=== PATIENT | male | born 1955 | race Caucasian/White ===

== ENCOUNTER 2019-01-13 15:14 | Outpatient (CLI) | payer MEDICARE, OTHER ==
--- NOTE | 2019-01-13 15:58 | RAD ---
RIGHT KNEE 3 VIEWS: Date: 01/13/19 HISTORY: Right knee pain. FINDINGS/IMPRESSION: Chondrocalcinosis is present. No fracture, dislocation, or bony destruction is identified. No signifi cant osteophytosis is noted. POS: OFF
== END 2019-01-13 15:15 | disposition home or self-care (01) ==
LOC: SCSRAD 15:14
PROVIDERS: ATTEND Family Medicine
DX: M25.561 Pain in right knee (principal); M11.261 Other chondrocalcinosis, right knee

== ENCOUNTER 2020-02-03 10:43 | Inpatient (IN) | payer MEDICARE, OTHER ==
[2020-02-03] MEDS ORDERED: Senokot S 8.6-50 MG TAB PO PRN (14:03)
[2020-02-03] MEDS ORDERED: Acetaminophen 650 MG Suppository PR PRN (14:03)
[2020-02-03] MEDS ORDERED: Acetaminophen 325 MG TAB PO PRN (14:03)
[2020-02-03] MEDS ORDERED: Ondansetron ODT 4 MG TAB PO PRN (14:03)
[2020-02-03] MEDS ORDERED: Ondansetron PF 4 MG/2 ML Vial IVP PRN (14:03)
[2020-02-03] MEDS ORDERED: Guaifenesin DM 100-10/5 ML UDCUP PO PRN (14:03)
[2020-02-03] MEDS ORDERED: Polyethylene Glycol 3350 17 GM Packet PO SCH (15:00)
[2020-02-03 15:04] LABS: Lactic Acid 4.1 mmol/L (0.5-2.2)
[2020-02-03] MEDS: Sodium Chloride 0.9% 1,000 ML IV SCH (15:57)
--- NOTE | 2020-02-03 16:15 | HP ---
PRIMARY CARE PHYSICIAN: Dr. Valle. CHIEF COMPLAINT: Shortness of breath and chest pain. 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 Eventually, he started following with a doctor in [facility] and started receiving radiation therapy to the recurrent mass on his right posterior shoulder blade area. He has been having some worsening intermittent problems with chest pain and shortness of breath. He did have a pleural effusion on his right side, eventually had to have a PleurX catheter placed. This has not been draining very much over the last few weeks and so was going to be taken out. The patient reports that he has had increased dyspnea on exertion over the last few months, but he got severely worse over the last 24 hours. He had persistent chest pain that did not relieve and persistent shortness of breath, even vague at rest and so he came into the emergency room in [place]. He was found to have an elevated white blood cell count 24,000, low hemoglobin of 7.9, elevated D-dimer and severe lactic acidosis of 4.4. The patient had blood cultures drawn there and was given Zosyn and vancomycin. He had a CT angio of the chest, which showed no pulmonary embolism , but left lung mass is worrisome for malignancy along with multifocal loculated complex right-sided pleural effusion, worrisome for pleural-based metastases and a large necrotic right axillary lymph node measuring 4.7 x 4 cm. The patient was saturating 92% on room air at rest. This then dropped with movement. However, he continued to have tachypnea up to 31 breaths per minute. The patient was noted also to be tachycardic with a pulse in the 110s. He was given 30 mL/kg fluid bolus with improvement in his tachycardia and he is feeling more comfortable, was transferred to our facility. REVIEW OF SYSTEMS: CONSTITUTIONAL: No fevers or chills. EYES: No double vision or blurred vision. ENT: No congestion, drainage, or sore throat. He has had a little bit of decreased coordination in his swallow ever since starting the radiation therapy and his throat feels a little bit tight when he tries to swallow things, but he has been able to eat and drink things. CARDIOVASCULAR: He has left-sided chest pain worse with deep breaths and coughs. No cardiac type chest pain. No palpitations or racing heart that he has noticed. PULMONARY: The patient will have some cough if he moves around a lot out. If he remains clearly at rest, he does not cough at all. He has not noticed any productive cough. No wheezing. He has had shortness of breath, especially dyspnea with exertion. GASTROINTESTINAL: The patient reports significant constipation since started on some potassium supplements by his oncologist that is not resolved with [id number] stool softeners. He had some nausea earlier, better with Zofran. No vomiting. No specific abdominal pain. GENITOURINARY: No dysuria or hematuria. MUSCULOSKELETAL: No muscle aches or joint pains besides his chest wall pain and right posterior scapular area pain. SKIN: The patient had 2 cystic-type lesions on his mid back and then his right posterior shoulder area, but no other rashes noted. NEUROLOGIC: No numbness, tingling, or focal weakness. PAST MEDICAL HISTORY: 1. 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 2. Hypertension. PAST SURGICAL HISTORY: 1. Left femur fracture repair after a fall from a ladder years ago. 2. Multiple surgeries to remove a very large cystic sarcoma lesion from his middle of his upper back. SOCIAL HISTORY: No tobacco or illicit drug use. The patient used to drink about a beer a day until the last 6 months or so. He has not had any alcohol since then. He is retired and lives with his who would be his medical decision maker, her name is Sherice Patton. The patient is a full code. FAMILY HISTORY: Without any significant family medical history. ALLERGIES: NO KNOWN DRUG ALLERGIES. CURRENT MEDICATIONS: 1. Doxazosin unknown dose daily. 2. Unknown dose potassium supplements. PHYSICAL EXAMINATION: VITAL SIGNS: Blood pressure 112/66, pulse 99, respirations 24, temperature 97.8 , and O2 saturation 98% on room air. GENERAL: This is a well-developed, well-nourished white male, in no acute distress as long as he remains still in the bed and does get severely dyspneic with any sort of movement. HEENT: Pupils are equal, round, and reactive to light. Oropharynx clear without lesions, erythema, or exudate. NECK: Supple. No lymphadenopathy. No thyroid nodules or enlargement. No JVD. HEART: Regular rate and rhythm. No murmurs, rubs, or gallops. LUNGS: The patient has some crackling in his right base and in the left mid lung field. Otherwise decent air movement throughout. No increased work of breathing at rest currently, and his tachypnea has improved since being in the emergency room. ABDOMEN: Soft and nontender to palpation. Mildly distended. Normoactive bowel sounds. No hepatosplenomegaly or other masses. EXTREMITIES: No clubbing, cyanosis, or edema. BACK: The patient has a large postsurgical area in his upper midline back with skin flap in place is well healed and then he has a scar lump just lateral to his right shoulder blade. It is hard to palpation and tender. He also has some mass in his right axillary area that is tender to palpation. SKIN: No other rashes or lesions noted. NEUROLOGIC: The patient moves all extremities equally. No facial droop. PSYCHIATRIC: Alert and oriented x3. Normal mood and affect. LABORATORY DATA: CBC with a white blood cell count of 24,000, hemoglobin 7.5, hematocrit 25.4, MCV low at 77, platelet count normal, neutrophils 80%, bands 10 %, and lymphocytes low at 4. Coagulation profile shows a D-dimer of 10. Complete metabolic panel is notable for a sodium of 135, chloride of 97, BUN of 30, creatinine of 0.68, glucose of 125, alkaline phosphatase of 234, and albumin of 2.7, the rest was normal. Troponin was negative x1. Brain natriuretic peptide was elevated to 128. Initial lactic acid was 4.4, recheck after fluids was 3.0 and now 2.8. Rapid COVID test done in the emergency room is negative for COVID-19. The patient reports he has had multiple COVID tests for all of his procedures and treatments from his oncologist and they have all come back negative as well and he has not had any COVID contacts. Chest x-ray, I did review the chest x-ray done in the emergency room along with the radiologist's report, does show opacification of the right hemithorax with pleural and parenchymal changes, also with a _ opacity in the right lung apex and completely evaluated. CTA of the chest as per the HPI. ASSESSMENT: 1. Sepsis with possible pulmonary source of infection. The patient has received antibiotics and blood cultures and IV fluids. He does appear improved. His lactic acid is improving. We will admit the patient to the telemetry unit. We will consult Pulmonology. We will continue his antibiotics for now. 2. Sarcoma metastatic to the lungs. This is likely the underlying source of his issues, though possibly with an overlying infection. The patient has not had any chemotherapy, it should not be immunosuppressed at this time. He will need to follow up with his oncologist once his hospitalization is complete. 3. Microcytic anemia, possibly secondary to his cancer versus chronic gastrointestinal blood loss. We will check iron studies on him. We will start the patient on supplementary iron. We will transfuse if needed to keep him above 7 hemoglobin. 4. Constipation secondary to the patient's outpatient potassium treatments. We will start the patient on daily MiraLAX and will give him Senokot as needed twice a day. 5. Gastrointestinal prophylaxis. The patient on Pepcid twice a day. 6. Hypertension. We will watch his blood pressures closely and see if he needs any sort of medications. CODE STATUS: The patient is a full code. Should he be incapacitated, his would be his medical decision maker, her name is Sherice Patton. Job ID: [id number] MTDD
[2020-02-03] MEDS: Piperacillin/Tazobactam 4.5 GM in Sodium Chloride 0.9% 100 ML IVPB SCH (18:24)
[2020-02-04] MEDS: Piperacillin/Tazobactam 4.5 GM in Sodium Chloride 0.9% 100 ML IVPB SCH ×4 (01:32→17:41)
[2020-02-04 04:49] LABS: Iron 30 ug/dL (65-175); Iron Binding Capacity, Total 173 mcg/dL (261-462)
[2020-02-04 04:53] LABS: Anion Gap 16 mmol/L (10-20); BUN (Urea Nitrogen) 22 mg/dL (8.4-25.7); Calc. Creatinine Clearance 128 mL/min (70-130); Calcium 7.9 mg/dL (7.8-10.44); Carbon Dioxide 21 mmol/L (23-31); Chloride 104 mmol/L (98-107); Estimated GFR-MDRD Greater than 90; Glucose 159 mg/dL (80-115); Iron 27 ug/dL (65-175); Iron Binding Capacity, Total 179 mcg/dL (261-462); Potassium 3.8 mmol/L (3.5-5.1); Sodium 137 mmol/L (136-145)
[2020-02-04 05:06] LABS: Band 36 % (5-11); Eosinophils 5 % (0-10); Hemoglobin 6.7 g/dL (14.0-18.0); Hypochromia SLIGHT = 6-15 cells (100X) (0-5/hpf); Lymphocytes 6 % (21-51); MDiff Complete? YES; Mean Corpuscular HGB CONC 28.9 g/dL (32.0-36.0); Mean Corpuscular Hemoglobin 23.2 pg (27.0-31.0); Mean Corpuscular Volume 80.2 fL (78.0-98.0); Mean Platelet Volume 7.7 fL (7.4-10.4); Metamyelocyte 1 % (0-0); Monocytes 3 % (0-10); Neutrophil 49 % (42-75); Platelet Count 207 thou/uL (130-400); Platelet Morphology Comment Appears Adequate; RBC Distribution Width 16.6 % (11.5-14.5); Red Blood Cell (RBC) Count 2.86 mill/uL (4.70-6.10); White Blood Cell (WBC) Count 16.2 thou/uL (4.8-10.8)
--- NOTE | 2020-02-04 08:23 | PDOC.HOSPP ---
- Subjective Encounter Date: 02/04/20 Encounter Time: 12:00 Subjective: Patient has chest pain and fullness and SOB after eating every meal, slowly improves over a few hours each time. While I was sitting with him go suddenly light headed. Heart racing on exam then returned to normal. Tele called to say he had a self limited run of SVT. - Objective Vital Signs & Weight: Vital Signs (12 hours) Temp Pulse Resp BP Pulse Ox 02/04/20 07:34 98.5 F 103 H 20 117/62 94 L 02/04/20 04:00 97.6 F 65 20 112/67 96 02/04/20 03:00 95 02/03/20 21:00 98.4 F 104 H 16 102/59 L 92 L Weight Weight 181 lb 3.52 oz I&O: 02/03/20 02/04/20 02/05/20 06:59 06:59 06:59 Intake Total 1840 Balance 1840 Result Diagrams: 02/04/20 04:08 02/04/20 04:08 Hospitalist ROS - Review of Systems Constitutional: denies: fever, chills Respiratory: reports: shortness of breath, SOB with excertion. denies: cough Cardiovascular: reports: chest pain. denies: palpitations, orthopnea Gastrointestinal: reports: constipation. denies: nausea, vomiting, abdominal pain Genitourinary: denies: dysuria, hematuria Neurological: reports: weakness - Medication Medications: Active Medications Generic Name Dose Route Start Last Admin Trade Name Freq PRN Reason Stop Dose Admin Guaifenesin/Dextromethorphan 15 ml 02/03/20 14:03 02/04/20 01:29 Robitussin Dm PO 15 ml Q4H PRN Administration Cough Sodium Chloride 1,000 mls @ 75 mls/hr 02/03/20 14:03 02/03/20 15:57 Normal Saline 0.9% IV 1,000 mls .[id number] JATINDER Administration Piperacillin Sod/Tazobactam 100 mls @ 200 mls/hr 02/03/20 18:00 02/04/20 06: 09 Sod 4.5 gm/ Sodium Chloride IVPB 100 mls Q6HR JATINDER Administration - Exam General Appearance: NAD, awake alert ENT: moist mucosa Heart: no murmur, no gallops, no rubs, normal peripheral pulses Heart - other findings: tachycardic, then slowed back down Respiratory: normal chest expansion, no tachypnea Respiratory - other findings: some rhonchi on the right base Gastrointestinal: soft, non-tender, non-distended, normal bowel sounds Psychiatric: normal affect, normal behavior, A&O x 3 Hosp A/P (1) Sepsis Code(s): A41.9 - SEPSIS, UNSPECIFIED ORGANISM Status: Acute (2) Lactic acidosis Code(s): E87.2 - ACIDOSIS Status: Acute (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 Code(s): C78.00 - SECONDARY MALIGNANT NEOPLASM OF UNSPECIFIED LUNG; C49.9 - MALIGNANT NEOPLASM OF CONNECTIVE AND SOFT TISSUE, UNSP Status: Acute (4) Acute respiratory failure with hypoxia Code(s): J96.01 - ACUTE RESPIRATORY FAILURE WITH HYPOXIA Status: Acute (5) Anemia of chronic disease Code(s): D63.8 - ANEMIA IN OTHER CHRONIC DISEASES CLASSIFIED ELSEWHERE Status : Acute (6) Constipation Code(s): K59.00 - CONSTIPATION, UNSPECIFIED Status: Resolved (7) SVT (supraventricular tachycardia) Code(s): I47.1 - SUPRAVENTRICULAR TACHYCARDIA Status: Resolved - Plan Patient with some SOB overnight, put on O2 via nasal cannula. Lactic acid up further. Getting fluids and IV antibiotics- Zosyn and Vancomycin since 02/03/2020. Blood cultures pending. Leukocytosis improved some but with significant bandemia. H/H dropped with fluid resuscitation, will transfuse to keep above 7 and will ask Heme/Onc to see. Dr. Lemos consulted with pulmonology. Palliative care consulted. Patient with poor prognosis. SVT run- consulted Dr. Whitmore and started on low dose metoprolol to prevent further episodes. Likely due to sepsis and lung pathology.
[2020-02-04] MEDS: Enoxaparin Sodium 40 MG/0.4 ML SYRINGE SC SCH (09:15)
[2020-02-04] MEDS: Sodium Chloride 0.9% 1,000 ML IV SCH ×2 (09:18→14:54)
[2020-02-04] MEDS: Polyethylene Glycol 3350 17 GM Packet PO SCH (09:23)
[2020-02-04] MEDS: Vancomycin HCl 1.25 GM in Sodium Chloride 0.9% 250 ML 250 ML IVPB SCH ×2 (09:31→22:51)
--- NOTE | 2020-02-04 10:51 | CON ---
DATE OF CONSULTATION: HISTORY OF PRESENT ILLNESS: Mr. Patton is a 64-year-old male. In 2018, he developed a lesion on his back, that was incised and drained. He says it was extremely painful. He was seen in followup 3 to 4 weeks later and this had grown significantly. He went to a structural analysis engineer who did an excisional biopsy and said 2 markers were missing and it was not a sarcoma. He eventually saw another structural analysis engineer who did a wide excision and left him open to heal for 4 months by secondary closure. At that time, he was not told he had a sarcoma either. Since that time, he has been followed at [facility]. He has had a tunneled pleural catheter placed for pleural effusion. He had a chest tube prior to that. Pleural catheter initially was draining 300 mL and now is draining 15 mL. I was consulted because of an abnormal radiograph. He was seen in the [facility] in [place], then admitted to the hospitalist service. He has a very large lymph node under his arm. He had a recurrence cutaneously on the edge of his wide excision, that has recently been radiated. His main complaint is shortness of breath. PAST MEDICAL HISTORY: Remarkable for: 1. Hypertension. 2. Femur fracture with a fall from a ladder. SOCIAL HISTORY: He is a nonsmoker and nondrinker. FAMILY HISTORY: Negative for lung disease in early age. ALLERGIES: HE HAS NO DRUG ALLERGIES. MEDICATIONS: Have been reviewed. REVIEW OF SYSTEMS: Otherwise negative. His main complaint is shortness of breath. He denies hemoptysis. PHYSICAL EXAMINATION: VITAL SIGNS: He is afebrile, heart rate is 103 respiratory rate is 20, oximetry is 94 to 96 on 1.5 L, and blood pressure 117/62. HEAD AND NECK: Unremarkable. He has very large axillary node. He has radiation burn to his right shoulder. The mass is still palpable. His pupils are equal. Sclerae are anicteric. His neck is supple. I did not palpate any cervical lymph nodes. LUNGS: Remarkable for absent breath sounds on the right. Left lung is clear. HEART: Regular rhythm. S1 and S2 are normal. ABDOMEN: Soft and nontender. EXTREMITIES: Without clubbing, cyanosis, or edema. LABORATORY DATA: Chest CT has been reviewed. IMPRESSION: Widely metastatic sarcoma. In my opinion in the situation such as this with a sarcoma that is being followed at [facility], he should continue to be followed by his physicians at [facility]. He says he was scheduled to have a MediPort placed, but this procedure was canceled because of low potassium. He says he is progressively getting weaker. I will ask the chest surgeons to look at him to see if there is anything different that can be done, but he would probably be best served going back to his physicians at [facility] nor [place]. TIME SPENT: This is a 70-minute consult, 50% of the time was spent on the unit coordinating care. Job ID: [id number]
[2020-02-04] MEDS ORDERED: Metoprolol Tartrate 5 MG/5 ML VIAL IVP SCH (12:15)
--- NOTE | 2020-02-04 13:52 | CON ---
DATE OF CONSULTATION: REASON FOR CONSULTATION: Sarcoma. HISTORY OF PRESENT ILLNESS: Mr. 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 He was initially misdiagnosed as a cyst for many months and was drained multiple times. On the 3rd drainage, the pathology came back as sarcoma and he was referred to [facility]. In 2018, he had an excision of the right upper back mass. Review of the pathology at [facility] revealed cellular fibrous histiocytoma with atypia involving the dermis and subcutis tumor, measured 5.3 x 4.5 x 2.6 cm, and margins were negative. He then re-presented to [facility] with a right lateral upper back mass, somewhat distant to the prior back tumor. The MRI revealed a 3 x 5 x 4.5 cm mass in the posterior aspect of the right shoulder girdle as well as an enlarged 2 cm right axillary mass. He started radiation, which he completed approximately 3 weeks ago. During radiation, he was noted to have a pleural effusion and had a chest tube and then a PleurX catheter placed. He received his first dose of chemotherapy last Sunday. Over the weekend, he began to have worsening shortness of breath with increasing weakness. He presented to our facility for evaluation. CT angio of the chest showed no PE; however, he had multiple left lung masses. He had a multifocal loculated complex right-sided pleural effusion. There was a 4 cm right axillary lymph node. He was transferred to [place] from [place] for pulmonary consult. Dr. Lemos has seen the patient. We are asked to see the patient regarding his sarcoma. The patient complains of shortness of breath and weakness at this time. He ate breakfast this morning and feels he has a pressure and a sensation of fullness in his mid chest. No chest pain. He had a leukocytosis on arrival with a white count of 24.4, his hemoglobin has dropped to 6.7, and his platelet count is 207,000. PAST MEDICAL HISTORY: 1. Metastatic sarcoma to the lungs, lymph nodes, and pleural space. 2. Hypertension. PAST SURGICAL HISTORY: 1. Resection of right upper back mass. 2. Hip fracture repair. ALLERGIES: NO KNOWN DRUG ALLERGIES. HOME MEDICATIONS: Cardura 2 mg daily. FAMILY HISTORY: Sister has lung cancer. SOCIAL HISTORY: , has one child. No alcohol, tobacco, or illicit drug use. REVIEW OF SYSTEMS: Ten-point review of systems is negative except for noted in HPI. PHYSICAL EXAMINATION: VITAL SIGNS: Temperature is 98.5, pulse is 103, respiratory rate 20, BP is 117/ 62, and he is 94% on 1.5 L nasal cannula. GENERAL: This is a well-developed, well-nourished male, in no acute distress. HEENT: He is normocephalic and atraumatic. Pupils are equal and reactive to light. NECK: Supple. CV: Regular rate and rhythm. LUNGS: Clear. ABDOMEN: Soft and nontender. EXTREMITIES: There is no clubbing or cyanosis. SKIN: He has a right shoulder mass and a 4 to 5 cm axillary mass. NEUROLOGIC: Nonfocal. PERTINENT LABORATORY DATA AND X-RAYS: WBCs are 16.2, hemoglobin 6.7, hematocrit 23.0, and platelet count is 207,000. He has 49% neutrophils, 36% bands, and 6% lymphocytes. Sodium is 137, potassium 3.8, chloride 104, CO2 is 21, BUN is 22, creatinine 0.66, and calcium 7.9. Lactic acid 4.1. Bilirubin is 1, AST is 20, ALT is 52, and alkaline phosphatase is 234. BNP is 128. Serum total protein is 6, albumin 2.7, and globulin 3.3. COIVD negative. Radiology per HPI. ASSESSMENT: 1. Metastatic sarcoma. 2. Loculated pleural fluid. DISCUSSION: The patient states he was due to see his oncologist in [place] today. They have been notified of his hospitalization. Dr. Lemos has seen the patient and has recommended the thoracic surgeons to look and see if there is anything that they can do to improve his breathing. His leukocytosis may be from pegfilgrastim, although he is unsure if he received a dose after chemotherapy last Sunday. I would recommend a blood transfusion as he has dropped hemoglobin of 6.7. Recommend followup with [facility] once discharged to resume treatment. He has a poor prognosis. Palliative Care to discuss goals of care with him. Thank you for the consult. Job ID: [id number] [facility]
[2020-02-04] MEDS ORDERED: Metoprolol Tartrate 25 MG TAB PO SCH ×2 (14:15→21:00)
--- NOTE | 2020-02-04 14:17 | CON ---
DATE OF CONSULTATION: HISTORY OF PRESENT ILLNESS: The patient is 65 yaer old gentleman, who presents for evaluation of palpitations. The patient has a previous history of pericarditis. The patient states many years ago, he was diagnosed with pericarditis. He has subsequently done well until recently he was diagnosed with a sarcoma. The patient has been treated at [facility]. He states he has not yet undergone chemotherapy. The patient presented with increasing dyspnea. He underwent a CT scan, which revealed him to have no evidence of an embolus. He was admitted, and on child monitor, was noted to have rapid heart rate. The patient reports having palpitations. He denies having any chest discomfort. PAST MEDICAL HISTORY: 1. Sarcoma. 2. Hypertension. 3. History of pericarditis. PAST SURGICAL HISTORY: Hip surgery. SOCIAL HISTORY: Nonsmoker. ALLERGIES: NO KNOWN DRUG ALLERGIES. FAMILY HISTORY: Positive family history of heart disease. REVIEW OF SYSTEMS: Noticeable for constipation and decreased appetite. PHYSICAL EXAMINATION: GENERAL/VITAL SIGNS: Ill-appearing gentleman with a blood pressure 110/65, heart rate was 110. NECK: No jugular venous distention. LUNGS: Decreased breath sounds in the right base. HEART: Regular rate and rhythm. Normal S1, S2. No murmurs. ABDOMEN: Nondistended. EXTREMITIES: Showed trace edema. VASCULAR: Radial pulse 2+. LABORATORY DATA: Sodium 137, potassium 3.8, chloride 104, bicarbonate 21, BUN 22, creatinine 0.66, and glucose 159. White blood cell count 16.2, hemoglobin 6.7, hematocrit 23.0, and platelets 207. monitoring specialist revealed sinus tachycardia with a short run of nonsustained SVT. IMPRESSION: 1. Supraventricular tachycardia. 2. Metastatic sarcoma. 3. Hypertension. 4. Anemia. PLAN: This gentleman presents with possible sepsis. From a cardiac standpoint , he had a short run of SVT. We would place him on low-dose metoprolol. We will follow this patient with you through his hospitalization. Job ID: [id number] [facility]
--- NOTE | 2020-02-04 18:13 | CON ---
DATE OF CONSULTATION: HISTORY OF PRESENT ILLNESS: This is an unfortunate 64-year-old gentleman with a diagnosis of some sort of sarcoma on his back that over the course of the past year has been biopsied multiple times, ultimately undergoing extensive resection. He had a skin graft and flap to treat the tumor, which then promptly recurred and he was undergoing radiation therapy this past a month or 2 when he was noted to have pleural effusion on the right. He had placement of a PleurX catheter; however, this is failed to drain more than about 15 mL of fluid for the past several weeks. Due to dyspnea, he presented to the [facility] and was transferred here and I have reviewed his CAT scan, showing a large central right hilar mass compressing the right lower lobe and pushing his heart into the left hemithorax. There are 3 loculated pleural effusions as well. PAST MEDICAL HISTORY: Otherwise not really related with the diagnosis of hypertension and a previous left leg fracture. SOCIAL HISTORY: He is a nonsmoker and nondrinker, and . PHYSICAL EXAMINATION: GENERAL: On examination, he is a pale, ill-appearing gentleman, in no distress, although he is on nasal cannula oxygen. He is able to carry on a conversation without much dyspnea. BACK: Radiation changes to the skin of his posterior hemithorax with a palpable mass in the center of this radiation change. He has a healed skin graft from his flap and skin graft closure. LUNGS: His breath sounds are present throughout, although he does have some crackling in his right midlung field. EXTREMITIES: Without edema. ASSESSMENT AND PLAN: At this time, the patient really needs treatment for his sarcoma rather than drainage of fluid. He could have a CT-directed drainage procedure. MediPort placed and PleurX removed; however, I think he would be best served at his treating facility rather than here. Job ID: [id number]
[2020-02-04] MEDS ORDERED: Digoxin 0.5 MG/2 ML AMP ONE (18:38)
[2020-02-04] MEDS ORDERED: Metoprolol Tartrate 5 MG/5 ML VIAL ONE (18:46)
[2020-02-04] MEDS: Amiodarone 450 MG, Admixture Fee 1 EACH in Dextrose 5% in Water 250 ML IVPB SCH (18:46)
[2020-02-04] MEDS: Melatonin 3 MG TAB PO PRN (22:51)
[2020-02-04 23:54] LABS: Hemoglobin 8.1 g/dL (14.0-18.0)
[2020-02-05] MEDS: Piperacillin/Tazobactam 4.5 GM in Sodium Chloride 0.9% 100 ML IVPB SCH ×4 (01:00→18:33)
[2020-02-05] MEDS: Amiodarone 450 MG, Admixture Fee 1 EACH in Dextrose 5% in Water 250 ML IVPB SCH (01:00)
[2020-02-05 05:14] LABS: #Eosinphils 0.2 thou/uL (0.0-0.7); #Lymphocytes 0.8 thou/uL (1.20-3.40); #Monocytes 0.9 thou/uL (0.11-0.59); #Neutrophils 10.6 thou/uL (1.40-6.50); %Basophils 0.1 % (0.0-1.0); %Eosinophils 1.4 % (0.0-10.0); %Lymphocytes 6.6 % (21.0-51.0); %Monocytes 7.5 % (0.0-10.0); %Neutrophils 84.4 % (42.0-75.0); Hemoglobin 8.4 g/dL (14.0-18.0); Mean Corpuscular HGB CONC 30.7 g/dL (32.0-36.0); Mean Corpuscular Hemoglobin 24.9 pg (27.0-31.0); Mean Corpuscular Volume 81.2 fL (78.0-98.0); Mean Platelet Volume 8.5 fL (7.4-10.4); Platelet Count 125 thou/uL (130-400); RBC Distribution Width 16.1 % (11.5-14.5); Red Blood Cell (RBC) Count 3.35 mill/uL (4.70-6.10); White Blood Cell (WBC) Count 12.5 thou/uL (4.8-10.8)
[2020-02-05 05:32] LABS: Anion Gap 14 mmol/L (10-20); BUN (Urea Nitrogen) 18 mg/dL (8.4-25.7); Calc. Creatinine Clearance 108 mL/min (70-130); Calcium 7.7 mg/dL (7.8-10.44); Carbon Dioxide 23 mmol/L (23-31); Chloride 102 mmol/L (98-107); Estimated GFR-MDRD Greater than 90; Glucose 259 mg/dL (80-115); Potassium 3.6 mmol/L (3.5-5.1); Sodium 135 mmol/L (136-145)
--- NOTE | 2020-02-05 07:44 | PDOC.HOSPP ---
- Subjective Encounter Date: 02/05/20 Encounter Time: 10:00 Subjective: Patient with persistent shortness of breath, better at rest. Heart rate better controlled now with amiodarone. Did have a few loose small bowel movements and cramps from the laxatives overnight, but no large ones. - Objective Vital Signs & Weight: Vital Signs (12 hours) Temp Pulse Pulse Resp BP BP Pulse Ox 02/05/20 03:26 97.4 F L 91 20 162/70 H 97 02/04/20 22:53 98.8 F 82 16 118/68 98 02/04/20 20:24 98.5 F 102 H 22 H 115/59 L 97 02/04/20 20:00 98.1 F 102 H 18 115/59 L 98 Weight Weight 180 lb 1.6 oz I&O: 02/04/20 02/05/20 02/06/20 06:59 06:59 06:59 Intake Total 1840 1240 Output Total 400 Balance 1840 840 Result Diagrams: 02/05/20 04:42 02/05/20 04:42 Hospitalist ROS - Review of Systems Constitutional: denies: fever, chills Respiratory: reports: shortness of breath. denies: cough Cardiovascular: reports: chest pain. denies: palpitations Gastrointestinal: reports: nausea. denies: vomiting - Medication Medications: Active Medications Generic Name Dose Route Start Last Admin Trade Name Freq PRN Reason Stop Dose Admin Enoxaparin Sodium 40 mg 02/04/20 09:00 02/04/20 09:15 Lovenox SC 40 mg 0900 JATINDER Administration Guaifenesin/Dextromethorphan 15 ml 02/03/20 14:03 02/04/20 01:29 Robitussin Dm PO 15 ml Q4H PRN Administration Cough Sodium Chloride 1,000 mls @ 75 mls/hr 02/03/20 14:03 02/04/20 14:54 Normal Saline 0.9% IV Not Given .[id number] JATINDER Piperacillin Sod/Tazobactam 100 mls @ 200 mls/hr 02/03/20 18:00 02/05/20 05: 11 Sod 4.5 gm/ Sodium Chloride IVPB 100 mls Q6HR JATINDER Administration Vancomycin HCl 1.25 gm/ Sodium 250 mls @ 166.667 mls/hr 02/04/20 09:00 22:51 Chloride IVPB 250 mls Q12HR JATINDER Administration Amiodarone HCl 450 mg/ 259 mls @ 0 mls/hr 02/04/20 18:30 02/05/20 01:00 Miscellaneous Medication 1 IVPB 259 mls each/ Dextrose/Water INF JATINDER Administration Protocol As Directed Melatonin 3 mg 02/04/20 22:02 02/04/20 22:51 Melatonin PO 3 mg HS PRN Administration Insomnia Pantoprazole Sodium 40 mg 02/04/20 09:00 02/04/20 09:15 Protonix PO 40 mg DAILY JATINDER Administration Polyethylene Glycol 17 gm 02/04/20 09:00 02/04/20 09:23 Miralax PO Not Given DAILY JATINDER - Exam General Appearance: NAD, awake alert ENT: moist mucosa Heart: RRR, no murmur, no gallops, no rubs Heart - other findings: heart rate currently in 90s Respiratory - other findings: coarse breath sounds and some rhonchi on the right , no inc WOB at rest Gastrointestinal: soft, non-tender, normal bowel sounds Gastrointestinal - other findings: mild distension Psychiatric: normal affect, normal behavior, A&O x 3 Hosp A/P (1) Sepsis Code(s): A41.9 - SEPSIS, UNSPECIFIED ORGANISM Status: Acute (2) Lactic acidosis Code(s): E87.2 - ACIDOSIS Status: Acute (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 Code(s): C78.00 - SECONDARY MALIGNANT NEOPLASM OF UNSPECIFIED LUNG; C49.9 - MALIGNANT NEOPLASM OF CONNECTIVE AND SOFT TISSUE, UNSP Status: Acute (4) Acute respiratory failure with hypoxia Code(s): J96.01 - ACUTE RESPIRATORY FAILURE WITH HYPOXIA Status: Acute (5) Anemia of chronic disease Code(s): D63.8 - ANEMIA IN OTHER CHRONIC DISEASES CLASSIFIED ELSEWHERE Status : Acute (6) Constipation Code(s): K59.00 - CONSTIPATION, UNSPECIFIED Status: Resolved (7) SVT (supraventricular tachycardia) Code(s): I47.1 - SUPRAVENTRICULAR TACHYCARDIA Status: Resolved (8) Atrial fibrillation with RVR Code(s): I48.91 - UNSPECIFIED ATRIAL FIBRILLATION Status: Resolved - Plan Leukocytosis improving with fluids and antibiotics. H/H stable after transfusion. Dr. Lemos consulted with pulmonology. Spoke with Sammy about possibly draining fluid, he recommends transfer to patient's oncologist Dr. Olivier in the [place] for removal of non-functioning pleuracath and placement of port if they will start chemo. I tried to transfer to [facility] in [facility] and they are not accepting due to at capacity. Spoke with Dr. Olivier and he asked that we get Mediport placed and he will prepare patient's second dose of chemo for whenever patient can get to his office, perhaps on Sunday. Will see if Dr. Christianson can get the port put in some time this weekend. Palliative care consulted. Patient with poor prognosis. Afib with RVR resolved with amiodarone, digoxin per Dr. Whitmore instructions last night. Plan to switch to oral today.
[2020-02-05 09:37] LABS: Vancomycin, Trough 18.7 ug/mL
[2020-02-05] MEDS: Vancomycin HCl 1.25 GM in Sodium Chloride 0.9% 250 ML 250 ML IVPB SCH ×2 (09:45→21:25)
[2020-02-05] MEDS: Enoxaparin Sodium 40 MG/0.4 ML SYRINGE SC SCH (09:46)
[2020-02-05] MEDS: Polyethylene Glycol 3350 17 GM Packet PO SCH (09:47)
[2020-02-05] MEDS: Sodium Chloride 0.9% 1,000 ML IV SCH ×2 (09:55→21:26)
[2020-02-05] MEDS: Simethicone Chewable 80 MG TAB PO PRN ×2 (13:09→18:33)
[2020-02-05 13:45] VITALS: BMI 25.8
--- NOTE | 2020-02-05 18:19 | CON ---
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 We have discussed MediPort placement and its care afterwards and access at the infusion center. He is agreeable to proceed tomorrow. Hemoglobin is currently 8.4. His creatinine is 0.78 and potassium is 3.6. He has been consented and plan is for tomorrow morning. Job ID: [id number]
[2020-02-05] MEDS: Amiodarone 200 MG TAB PO SCH (21:25)
[2020-02-05] MEDS: Melatonin 3 MG TAB PO PRN (21:26)
--- NOTE | 2020-02-05 23:26 | PRG ---
DATE OF SERVICE: 02/05/2020 SUBJECTIVE: Mr. Patton was felt to not have anything amenable to chest tube or thoracoscopy. It is felt that he has loculated fluid as well as a mass in his chest. His PleurX catheter is no longer draining any significant amount of fluid, so it could probably be removed. ASSESSMENT AND PLAN: I recommended transfer to [facility], but it has been reported to me that they do not have any beds available. He still does not have a MediPort for chemotherapy, so it would be reasonable to do this while he is here. Job ID: [id number]
[2020-02-06] MEDS: Simethicone Chewable 80 MG TAB PO PRN ×2 (02:34→21:28)
[2020-02-06] MEDS: Piperacillin/Tazobactam 4.5 GM in Sodium Chloride 0.9% 100 ML IVPB SCH ×2 (02:35→06:02)
[2020-02-06] MEDS ORDERED: Lidocaine 1% w/Epinephrine 1:100K 20 ML VIAL ONE (06:35)
[2020-02-06] MEDS ORDERED: Lidocaine 1% (PF) 30 ML VIAL ONE (06:35)
[2020-02-06] MEDS ORDERED: Midazolam HCl 2 mg/2 ml Vial ONE (07:54)
[2020-02-06] MEDS ORDERED: Fentanyl 100 MCG/2 ML VIAL ONE (07:54)
[2020-02-06] MEDS ORDERED: PROPOFOL 40 ML ONE (07:55)
[2020-02-06] MEDS ORDERED: Famotidine/PF 20 mg/2ml Vial ONE (07:55)
--- NOTE | 2020-02-06 08:01 | PDOC.HOSPP ---
- Subjective Encounter Date: 02/06/20 Encounter Time: 10:30 Subjective: Patient reports stomach feeling a lot better with the Mylicon. Had port placed today. Feeling ok at rest but still with SOB and chest pressure with ambulation. - Objective Vital Signs & Weight: Vital Signs (12 hours) Temp Pulse Resp BP Pulse Ox 02/05/20 20:00 98.2 F 96 18 129/61 96 Weight Admit Weight 181 lb 3.52 oz Weight 178 lb 3.2 oz I&O: 02/05/20 02/06/20 02/07/20 06:59 06:59 06:59 Intake Total 1240 480 Output Total 400 750 Balance 840 -270 Result Diagrams: 02/05/20 04:42 02/05/20 04:42 Hospitalist ROS - Review of Systems Constitutional: denies: fever, chills Respiratory: reports: shortness of breath, SOB with excertion. denies: cough Cardiovascular: reports: chest pain. denies: palpitations, orthopnea Gastrointestinal: reports: constipation. denies: nausea, vomiting, abdominal pain, diarrhea - Medication Medications: Active Medications Generic Name Dose Route Start Last Admin Trade Name Freq PRN Reason Stop Dose Admin Acetaminophen 650 mg 02/03/20 14:03 02/05/20 21:26 Tylenol PO 650 mg Q4H PRN Administration Headache/Fever/Mild Pain (1-3) Amiodarone HCl 400 mg 02/05/20 21:00 02/05/20 21:25 Cordarone PO 400 mg TID JATINDER Administration Enoxaparin Sodium 40 mg 02/04/20 09:00 02/05/20 09:46 Lovenox SC 40 mg 0900 JATINDER Administration Guaifenesin/Dextromethorphan 15 ml 02/03/20 14:03 02/04/20 01:29 Robitussin Dm PO 15 ml Q4H PRN Administration Cough Sodium Chloride 1,000 mls @ 75 mls/hr 02/03/20 14:03 02/05/20 21:26 Normal Saline 0.9% IV Not Given .[id number] JATINDER Piperacillin Sod/Tazobactam 100 mls @ 200 mls/hr 02/03/20 18:00 02/06/20 06: 02 Sod 4.5 gm/ Sodium Chloride IVPB Not Given Q6HR JATINDER Vancomycin HCl 1.25 gm/ Sodium 250 mls @ 166.667 mls/hr 02/04/20 09:00 21:25 Chloride IVPB 250 mls Q12HR JATINDER Administration Melatonin 3 mg 02/04/20 22:02 02/05/20 21:26 Melatonin PO 3 mg HS PRN Administration Insomnia Ondansetron HCl 4 mg 02/03/20 14:03 02/05/20 21:27 Zofran Odt PO 4 mg Q6H PRN Administration Nausea/Vomiting Pantoprazole Sodium 40 mg 02/04/20 09:00 02/05/20 09:46 Protonix PO 40 mg DAILY JATINDER Administration Polyethylene Glycol 17 gm 02/04/20 09:00 02/05/20 09:47 Miralax PO Not Given DAILY JATINDER Simethicone 80 mg 02/05/20 12:41 02/06/20 02:34 Mylicon Chewable PO 80 mg PCHS PRN Administration Gas Pain - Exam General Appearance: NAD, awake alert ENT: moist mucosa Heart: RRR, no murmur, no gallops, no rubs Respiratory - other findings: some crackles on right side, good air movement throughout Gastrointestinal: soft, non-tender, non-distended, normal bowel sounds Psychiatric: normal affect, normal behavior, A&O x 3 Hosp A/P (1) Sepsis Code(s): A41.9 - SEPSIS, UNSPECIFIED ORGANISM Status: Acute (2) Lactic acidosis Code(s): E87.2 - ACIDOSIS Status: Acute (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 Code(s): C78.00 - SECONDARY MALIGNANT NEOPLASM OF UNSPECIFIED LUNG; C49.9 - MALIGNANT NEOPLASM OF CONNECTIVE AND SOFT TISSUE, UNSP Status: Acute (4) Acute respiratory failure with hypoxia Code(s): J96.01 - ACUTE RESPIRATORY FAILURE WITH HYPOXIA Status: Acute (5) Anemia of chronic disease Code(s): D63.8 - ANEMIA IN OTHER CHRONIC DISEASES CLASSIFIED ELSEWHERE Status : Acute (6) Constipation Code(s): K59.00 - CONSTIPATION, UNSPECIFIED Status: Resolved (7) SVT (supraventricular tachycardia) Code(s): I47.1 - SUPRAVENTRICULAR TACHYCARDIA Status: Resolved (8) Atrial fibrillation with RVR Code(s): I48.91 - UNSPECIFIED ATRIAL FIBRILLATION Status: Resolved - Plan Leukocytosis improving with fluids and antibiotics. H/H stable after transfusion. Spoke with Dr. Olivier patient's oncologist in the [place] and he asked that we get Mediport placed and he will prepare patient's second dose of chemo for whenever patient can get to his office, perhaps on Sunday. Dr. Simon placed the Mediport earlier today. Palliative care consulted. Patient with poor prognosis. Afib with RVR resolved with amiodarone, switched to oral. Will see about getting home oxygen for the patient, possibly home tomorrow or Sunday so he can get to his chemotherapy on Sunday.
[2020-02-06] MEDS ORDERED: Promethazine HCl 25 MG/ML VIAL IM PRN (08:41)
[2020-02-06] MEDS ORDERED: Ondansetron HCl/PF 4 MG/2 ML Vial IVP PRN (08:41)
[2020-02-06] MEDS ORDERED: Promethazine HCl 25 MG/ML VIAL SLOW IVP PRN (08:41)
--- NOTE | 2020-02-06 09:13 | OP ---
DATE OF PROCEDURE: 02/06/2020 PREOPERATIVE DIAGNOSES: 1. Need for long-term venous access for chemotherapy. 2. Nonfunctional right PleurX catheter for removal. PROCEDURES PERFORMED: 1. Placement of right internal jugular low-profile MediPort. 2. Removal of PleurX catheter. 3. Ultrasound-guided right internal jugular vein access. ANESTHESIA: IV sedation and 1% lidocaine for local. DESCRIPTION OF PROCEDURE: After appropriate consent was obtained, the patient was brought to the operating room, placed in supine position on the operating room table. Appropriate central line and monitors were placed. IV sedation was begun. After the patient was sedated, chest wall was prepped and draped in usual sterile fashion. The right neck was interrogated with ultrasound. The jugular vein was large. The area over the jugular vein was anesthetized with 1% lidocaine. A trach was marked with lidocaine down to the port site on his anterior chest wall, which was all anesthetized with 1% lidocaine. Using ultrasound guidance, percutaneous access to the internal jugular vein was obtained and a guidewire passed into the superior vena cava. Fluoroscopic guidance was then used to confirm jugular vein placement with extension down into the superior vena cava. A subcutaneous pocket was created on the anterior chest wall. The catheter was connected to the port and tunneled to the guidewire access site. The port was then placed subcutaneously and secured with two 4-0 Prolene sutures. Under fluoroscopic guidance, the access tract was dilated and Peel-Away sheath placed. The catheter was cut to appropriate length and passed through the peel-away sheath. Peel-away sheath was removed. Access site was then closed with a subcutaneous 4-0 Vicryl suture. The port was accessed, aspirated and flushed nicely. The port was flushed with heparinized saline. The port site was closed in layers and Dermabond applied to the skin. The PleurX access site was anesthetized with 1% lidocaine. The suture was cut and the cuff sharply dissected. Once the cuff was dissected free, the catheter was removed. A single 4-0 Vicryl suture was placed to close the skin access site. The patient was awakened and transferred to the recovery room in stable condition. Needle, sponge, and instrument counts were all reported as correct at the end of the procedure. Job ID: [id number]
[2020-02-06] MEDS ORDERED: PROPOFOL 200 MG/20 ML VIAL ONE (10:27)
[2020-02-06] MEDS ORDERED: Lidocaine 1% PF 5 ML VIAL ONE (10:27)
[2020-02-06] MEDS ORDERED: Dexamethasone 20 MG/5 ML VIAL ONE (10:27)
[2020-02-06] MEDS ORDERED: Ondansetron PF 4 MG/2 ML Vial ONE (10:27)
[2020-02-06] MEDS ORDERED: Metoclopramide HCl 10 MG/2 ML VIAL ONE (10:27)
[2020-02-06] MEDS: Polyethylene Glycol 3350 17 GM Packet PO SCH (10:30)
[2020-02-06] MEDS: Vancomycin HCl 1.25 GM in Sodium Chloride 0.9% 250 ML 250 ML IVPB SCH (10:31)
[2020-02-06] MEDS: Amiodarone 200 MG TAB PO SCH ×3 (10:32→21:28)
[2020-02-06] MEDS: Enoxaparin Sodium 40 MG/0.4 ML SYRINGE SC SCH (10:33)
[2020-02-06] MEDS: Sodium Chloride 0.9% 1,000 ML IV SCH (10:34)
--- NOTE | 2020-02-06 10:49 | PRG ---
DATE OF SERVICE: 02/06/2020 SUBJECTIVE: Mr. Patton is doing well. He is tentatively planned for discharge sometime soon and then has followup for start chemotherapy I believe on Sunday in [place]. OBJECTIVE: VITAL SIGNS: Oximetry is 97% on 2 L. he is afebrile. Heart rate is in the 80s, blood pressure 137/70. LUNGS: Unchanged. HEART: Unchanged. ABDOMEN: Unchanged. We will benefit from home oxygen, my opinion. IMPRESSION: Metastatic sarcoma, now with a MediPort in place. I will see him as needed in the future. Job ID: [id number]
[2020-02-06] MEDS: Amoxicillin/Potassium Clav 875 MG TAB PO SCH (21:28)
--- NOTE | 2020-02-07 07:42 | PDOC.HOSPP ---
- Subjective Encounter Date: 02/07/20 Encounter Time: 11:00 Subjective: Patient up and ambulated without O2, got a little SOB but O2 sats stayed 90 or above. No chest pain. - Objective Vital Signs & Weight: Vital Signs (12 hours) Temp Pulse Resp BP Pulse Ox 02/07/20 04:00 98.5 F 92 18 155/74 H 90 L 02/06/20 20:00 98.8 F 86 18 126/65 92 L Weight Admit Weight 181 lb 3.52 oz Weight 198 lb 9.6 oz I&O: 02/06/20 02/07/20 02/08/20 06:59 06:59 06:59 Intake Total 480 720 Output Total 750 125 Balance -270 595 Result Diagrams: 02/05/20 04:42 02/05/20 04:42 Hospitalist ROS - Review of Systems Constitutional: denies: fever, chills Respiratory: reports: SOB with excertion. denies: cough, shortness of breath Cardiovascular: denies: chest pain, palpitations Gastrointestinal: denies: nausea, vomiting, abdominal pain Neurological: reports: weakness - Medication Medications: Active Medications Generic Name Dose Route Start Last Admin Trade Name Freq PRN Reason Stop Dose Admin Acetaminophen 650 mg 02/03/20 14:03 02/05/20 21:26 Tylenol PO 650 mg Q4H PRN Administration Headache/Fever/Mild Pain (1-3) Amiodarone HCl 400 mg 02/05/20 21:00 02/06/20 21:28 Cordarone PO 400 mg TID JATINDER Administration Amoxicillin/Clavulanate Potassium 875 mg 02/06/20 21:00 02/06/20 21:28 Augmentin PO 875 mg Q12HR JATINDER Administration Enoxaparin Sodium 40 mg 02/04/20 09:00 02/06/20 10:33 Lovenox SC 40 mg 0900 JATINDER Administration Guaifenesin/Dextromethorphan 15 ml 02/03/20 14:03 02/04/20 01:29 Robitussin Dm PO 15 ml Q4H PRN Administration Cough Melatonin 3 mg 02/04/20 22:02 02/05/20 21:26 Melatonin PO 3 mg HS PRN Administration Insomnia Ondansetron HCl 4 mg 02/03/20 14:03 02/05/20 21:27 Zofran Odt PO 4 mg Q6H PRN Administration Nausea/Vomiting Pantoprazole Sodium 40 mg 02/04/20 09:00 02/06/20 10:32 Protonix PO 40 mg DAILY JATINDER Administration Polyethylene Glycol 17 gm 02/04/20 09:00 02/06/20 10:30 Miralax PO Not Given DAILY JATINDER Simethicone 80 mg 02/05/20 12:41 02/06/20 21:28 Mylicon Chewable PO 80 mg PCHS PRN Administration Gas Pain - Exam General Appearance: NAD, awake alert ENT: moist mucosa Heart: RRR, no murmur, no gallops, no rubs Respiratory - other findings: some crackles on right, decent air movement throughout Gastrointestinal: soft, non-tender, non-distended, normal bowel sounds Psychiatric: normal affect, normal behavior, A&O x 3 Hosp A/P (1) Sepsis Code(s): A41.9 - SEPSIS, UNSPECIFIED ORGANISM Status: Acute (2) Lactic acidosis Code(s): E87.2 - ACIDOSIS Status: Acute (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 Code(s): C78.00 - SECONDARY MALIGNANT NEOPLASM OF UNSPECIFIED LUNG; C49.9 - MALIGNANT NEOPLASM OF CONNECTIVE AND SOFT TISSUE, UNSP Status: Acute (4) Acute respiratory failure with hypoxia Code(s): J96.01 - ACUTE RESPIRATORY FAILURE WITH HYPOXIA Status: Acute (5) Anemia of chronic disease Code(s): D63.8 - ANEMIA IN OTHER CHRONIC DISEASES CLASSIFIED ELSEWHERE Status : Acute (6) Constipation Code(s): K59.00 - CONSTIPATION, UNSPECIFIED Status: Resolved (7) SVT (supraventricular tachycardia) Code(s): I47.1 - SUPRAVENTRICULAR TACHYCARDIA Status: Resolved (8) Atrial fibrillation with RVR Code(s): I48.91 - UNSPECIFIED ATRIAL FIBRILLATION Status: Resolved - Plan Leukocytosis improving with fluids and antibiotics- switched to oral Augmentin H/H stable after transfusion. Spoke with Dr. Olivier patient's oncologist in the [facility] and he asked that we get Mediport placed and he will prepare patient's second dose of chemo for whenever patient can get to his office, perhaps on Sunday. Dr. Simon placed the Mediport earlier today. Palliative care consulted. Patient with poor prognosis. Afib with RVR resolved with amiodarone, switched to oral. Will see about getting home oxygen for the patient, possibly home today or tomorrow so he can get to his chemotherapy on Sunday.
[2020-02-07] MEDS: Polyethylene Glycol 3350 17 GM Packet PO SCH (08:46)
[2020-02-07] MEDS: Enoxaparin Sodium 40 MG/0.4 ML SYRINGE SC SCH (08:46)
[2020-02-07] MEDS: Amiodarone 200 MG TAB PO SCH ×3 (08:47→20:27)
[2020-02-07] MEDS: Amoxicillin/Potassium Clav 875 MG TAB PO SCH ×2 (08:47→20:27)
[2020-02-07 20:36] VITALS: BP 136/67; TEMP 98.4
--- NOTE | 2020-02-08 01:05 | DIS ---
DATE OF ADMISSION: 02/03/2020 DATE OF DISCHARGE: 02/07/2020 PRIMARY CARE PHYSICIAN: Obey Valle MD PRIMARY ONCOLOGIST: Dr. Aragon in the [facility]. REASON FOR ADMISSION: Shortness of breath and chest pain. DIAGNOSES AT DISCHARGE: 1. Sepsis, resolved. 2. Sarcoma metastatic to the lungs. 3. Pneumonia. 4. Atrial fibrillation with rapid ventricular rate. 5. Anemia of chronic disease. 6. Constipation. PROCEDURES: 1. CT angio of the chest with and without contrast showing no acute pulmonary artery embolism. There are left lung masses consistent with malignancy, multifocal loculated complex right-sided pleural fluid, worrisome for possible pleural-based metastasis and large necrotic right axillary lymph node measuring 4.7 x 4 cm. 2. MediPort placement. 3. Removal of PleurX catheter. CONSULTATIONS: 1. Pulmonology, Guevara Lemos MD. 2. Heme/Oncology, Briana Rocha, YARD CLEANER for Marcy Yadav MD. 3. Cardiology, Grant Whitmore MD. 4. Cardiovascular Surgery, Nic Christianson MD and Espinoza Simon MD. 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 Aragon in the [facility]. He got a radiation treatment at first and then he got his first chemotherapy treatment last week. The patient is having worsening intermittent problems with chest pain and shortness of breath. He had had a pleural effusion on his right side, had a PleurX catheter placed. However, it was loculated, not draining very much. The patient got severely worse shortness of breath and chest pain of last 24 hours and so he went to the emergency room in [place]. There, he had elevated white cell count, elevated D-dimer, and some room-air hypoxia. He was started on antibiotics and a CT angio of the chest as above. He was given IV fluids for tachycardia. He was transferred to our facility. I did consult Dr. Lemos and Dr. Yadav. Dr. Lemos recommended talking with CT Surgery, Dr. Christianson evaluated the patient and determined it would be best to get treatment at his facility where is his oncologist. We did try to arrange transfer to the [facility]; however, they were full because of the COVID outbreak and cannot accept transfers. I did talk to Dr. Aragon, the patient's oncologist. He stated that he would like to give his second dose of chemotherapy if we could put the port in while he is in our hospital here. I did speak with Dr. Christianson and he had Dr. Simon put in a right IJ port. The patient did improve some over his hospitalization. He had some severe constipation when he came in, which we relieved with laxatives. He also had significant stomach cramping, this was relieved with Mylicon. He was tried off oxygen on the day of discharge and was saturating 90% to 91% both at rest and with ambulation. However, it was thought he probably would benefit from having oxygen at home. Should he have to walk further distance or he have another shortness of breath episode. The family was willing to pay for this, so we are setting up home oxygen for him. The patient was counseled about the terminal nature of his disease. He stated he would like to try and get a little more time just to help, be able to get some things done before he dies and so he is going to continue with the chemotherapy, but he does realize that this will eventually kill him. We did have Palliative Care talk with him while he was here. The patient was feeling better by the time of discharge. He was transferred over to Augmentin oral antibiotics and is being discharged home. During hospitalization, the patient did have some intermittent runs of supraventricular tachycardia. Eventually, he developed atrial fibrillation with rapid ventricular rate almost into the 200s. Dr. Whitmore did evaluate the patient and to get him put on amiodarone drip and this controlled his rate. He was later after that in normal sinus rhythm. He was successfully converted over to oral therapy and will need to be have a taper down as an outpatient. DISCHARGE MANAGEMENT: Discharged home. ACTIVITY: As tolerated. DIET: Regular diet with Glucerna shakes t.i.d. Supplies oxygen. IV therapy instructions for [facility]. FOLLOWUP: Follow up with Dr. Aragon on Sunday for next dose of chemotherapy. Follow up with Dr. Whitmore in 2 to 3 weeks for tapering of his amiodarone. DISCHARGE MEDICATIONS: 1. Amiodarone 400 mg 3 times a day 90 tablets dispensed. 2. Augmentin 875 mg twice a day for another five days, 10 tablets dispensed. 3. Protonix 40 mg daily, 30 tablets dispensed. 4. MiraLAX 17 g daily, 30 packs dispensed. 5. Mylicon chewables 80 mg with meals and at night as needed for abdominal cramping, 60 tablets dispensed. 6. Doxazosin 2 mg p.o. daily. TIME SPENT: Arranging the details of this discharge took 35 minutes. Job ID: [id number]
== END 2020-02-07 10:15 | disposition home health service (06) | DRG 853 ==
LOC: ERS 10:43 → ERHOLD 13:21 → 2NO 17:38
PROVIDERS: ADMIT Emergency Medicine; ATTEND Emergency Medicine
PROC: 30233N1 Transfusion of Nonautologous Red Blood Cells into Peripheral Vein, Percutaneous Approach (ICD-10-PCS; 2020-02-04)
PROC: 0JH60WZ Insertion of Totally Implantable Vascular Access Device into Chest Subcutaneous Tissue and Fascia, Open Approach (ICD-10-PCS; principal; 2020-02-06)
PROC: 02HV33Z Insertion of Infusion Device into Superior Vena Cava, Percutaneous Approach (ICD-10-PCS; 2020-02-06)
PROC: B518ZZA Fluoroscopy of Superior Vena Cava, Guidance (ICD-10-PCS; 2020-02-06)
PROC: B548ZZA Ultrasonography of Superior Vena Cava, Guidance (ICD-10-PCS; 2020-02-06)
PROC: 0WP930Z Removal of Drainage Device from Right Pleural Cavity, Percutaneous Approach (ICD-10-PCS; 2020-02-06)
DX: A41.9 Sepsis, unspecified organism (principal); J18.9 Pneumonia, unspecified organism; Z20.828 Contact with and (suspected) exposure to other viral communicable diseases; J96.01 Acute respiratory failure with hypoxia; C79.89 Secondary malignant neoplasm of other specified sites; C78.02 Secondary malignant neoplasm of left lung; C78.01 Secondary malignant neoplasm of right lung; C77.3 Secondary and unspecified malignant neoplasm of axilla and upper limb lymph nodes; I47.1 Supraventricular tachycardia; E87.2 Acidosis; J91.0 Malignant pleural effusion; I10 Essential (primary) hypertension; D63.0 Anemia in neoplastic disease; K59.00 Constipation, unspecified; I48.91 Unspecified atrial fibrillation; Z79.899 Other long term (current) drug therapy
CPT/HCPCS: 36415; 36416; 36430; 80048; 80202; 82728; 83540; 83550; 83605; 83630; 85025; 86850; 86900; 86901; 87045; 87046; 87324; 87328; 87329; 87427; 87449; 99285; C1788; J0282; J0690; J1100; J1160; J1642; J1650; J2001; J2250; J2405; J2543; J2704; J2765; J3010; J3370; J3490; J7030; J7050; J7070; P9016; Q0162; S0028; U0002

== ENCOUNTER 2020-02-15 17:46 | Inpatient (IN) | payer MEDICARE, OTHER ==
[2020-02-15 18:48] LABS: INR-International Normal Ratio 1.3; Prothrombin Time 15.9 sec (12.0-14.7)
[2020-02-15 18:49] LABS: PTT 37.9 sec (22.9-36.1)
[2020-02-15 19:01] LABS: Hemoglobin 7.4 g/dL (14.0-18.0); Mean Corpuscular HGB CONC 31.3 g/dL (32.0-36.0); Mean Corpuscular Hemoglobin 25.9 pg (27.0-31.0); Mean Corpuscular Volume 82.7 fL (78.0-98.0); Mean Platelet Volume 12.8 fL (7.4-10.4); Platelet Count 23 thou/uL (130-400); RBC Distribution Width 18.7 % (11.5-14.5); Red Blood Cell (RBC) Count 2.84 mill/uL (4.70-6.10); White Blood Cell (WBC) Count 4.4 thou/uL (4.8-10.8)
[2020-02-15 19:02] LABS: ALT (SGPT) 11 U/L (8-55); AST (SGOT) 9 U/L (5-34); Albumin 2.1 g/dL (3.4-4.8); Alkaline Phosphatase 178 U/L (40-110); Anion Gap 13 mmol/L (10-20); BUN (Urea Nitrogen) 20 mg/dL (8.4-25.7); Bilirubin, Total 1.2 mg/dL (0.2-1.2); Calc. Creatinine Clearance 0 mL/min (70-130); Carbon Dioxide 30 mmol/L (23-31); Chloride 94 mmol/L (98-107); Estimated GFR-MDRD Greater than 90; Globulin 2.6 g/dL (2.4-3.5); Glucose 124 mg/dL (80-115); Magnesium 1.6 mg/dL (1.6-2.6); Potassium 3.5 mmol/L (3.5-5.1); Protein, Total 4.7 g/dL (5.8-8.1); Sodium 133 mmol/L (136-145)
--- NOTE | 2020-02-15 19:10 | RAD ---
PORTABLE CHEST: Indications: Shortness of breath. Lung cancer with metastasis. Comparison: 02-03-2020, CT chest 02-03-2020 FINDINGS: Opacification in the right lung is again seen consistent with right effusion and right lung infiltrat e and pleural masses which were described on prior CT. The left lung nodular densities. No infiltrate in the left lung. No significant left effusion. Mediport catheter has been placed and has tip overly ing the SVC. Post op changes are noted with surgical clips overlying the right chest again noted. IMPRESSION: Continued opacification in the right hemithorax, not significantly changed from the recent study. POS: AGW
[2020-02-15 19:19] LABS: Anisocytosis SLIGHT = 6-15 cells (100X) (0-5/hpf); Band 23 % (5-11); Dohle Bodies SLIGHT; Eosinophils 1 % (0-10); Hypochromia SLIGHT = 6-15 cells (100X) (0-5/hpf); Lymphocytes 7 % (21-51); MDiff Complete? YES; Metamyelocyte 2 % (0-0); Monocytes 4 % (0-10); Neutrophil 62 % (42-75); Nucleated RBC 1 % (0); Ovalocytes SLIGHT = 2-5 cells (100X) (0-1/hpf); Platelet Morphology Comment Appears Decreased; Polychromasia SLIGHT = 2-3 cells (100X) (0-2/hpf); Reactive Lymphocytes 1 % (0-10); Toxic Granulation SLIGHT
[2020-02-15] MEDS ORDERED: Cefepime 2 GM VIAL ONE (19:57)
[2020-02-15] MEDS ORDERED: Vancomycin 1 GM/200 ML BAG ONE (19:57)
[2020-02-15] MEDS ORDERED: HYDROcodone/Acetaminophen 5/325 mg Tablet PO PRN (20:04)
[2020-02-15] MEDS ORDERED: Acetaminophen 325 MG TAB PO PRN (20:04)
[2020-02-15] MEDS ORDERED: Acetaminophen 650 MG Suppository PR PRN (20:04)
--- NOTE | 2020-02-15 20:18 | PDOC.HHP ---
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 patient he was on his usual state of health until about 6 weeks ago when he started chemo, his last dose was last sunday. patient states that since his last chemo weakness its just getting progressively worse, he now states he cant get out of bed with out help. patient also complains of some chest pain of sob, this is not new, but he states its getting worse. patient denies any fever chills dysuria diarrhea nause or vomiting. Hospitalist ROS - Review of Systems All other systems reviewed; all pertinent +/- noted in HPI/Subj Hospitalist History - Past Medical History Source: patient - Family History Family History: reports: cancer, hypertension - Social History Smoking Status: Never smoker Alcohol: reports: None Drugs: reports: none - Exam General Appearance: NAD, ill appearing Eye: PERRL, anicteric sclera ENT: normocephalic atraumatic, no oropharyngeal lesions Neck: supple, symmetric, no JVD Heart: RRR, no murmur, no gallops Respiratory: CTAB, no wheezes, no rales Gastrointestinal: soft, non-tender, non-distended, normal bowel sounds Extremities: no cyanosis, no clubbing, no edema Skin: normal turgor, no lesions, no rashes Neurological: cranial nerve grossly intact, normal sensation to touch, no weakness, no focal deficits, no new deficit Musculoskeletal: normal tone, normal strength, no muscle wasting Psychiatric: normal affect, normal behavior, A&O x 3 Hospitalist Results - Labs Result Diagrams: 02/15/20 20:52 02/15/20 18:31 Lab results: WBC 4.4 thou/uL (4.8-10.8) L 02/15/20 18:31 Hgb 7.4 g/dL (14.0-18.0) L 02/15/20 18:31 Hct 23.5 % (42.0-52.0) L 02/15/20 18:31 MCV 82.7 fL (78.0-98.0) 02/15/20 18:31 Plt Count 23 thou/uL (130-400) L* 02/15/20 18:31 Band Neuts % (Manual) 23 % (5-11) H 02/15/20 18:31 Sodium 133 mmol/L (136-145) L 02/15/20 18:31 Potassium 3.5 mmol/L (3.5-5.1) 02/15/20 18:31 Chloride 94 mmol/L (98-107) L 02/15/20 18:31 Carbon Dioxide 30 mmol/L (23-31) 02/15/20 18:31 BUN 20 mg/dL (8.4-25.7) 02/15/20 18:31 Creatinine 0.69 mg/dL (0.7-1.3) L 02/15/20 18:31 Glucose 124 mg/dL (80-115) H 02/15/20 18:31 Lactic Acid 2.8 mmol/L (0.5-2.2) H 02/15/20 18:31 Calcium 8.0 mg/dL (7.8-10.44) 02/15/20 18:31 Total Bilirubin 1.2 mg/dL (0.2-1.2) 02/15/20 18:31 AST 9 U/L (5-34) 02/15/20 18:31 ALT 11 U/L (8-55) 02/15/20 18:31 Alkaline Phosphatase 178 U/L (40-110) H 02/15/20 18:31 Troponin I 0.013 ng/mL (< 0.028) 02/15/20 18:31 B-Natriuretic Peptide 107.3 pg/mL (0-100) H 02/15/20 18:31 Serum Total Protein 4.7 g/dL (5.8-8.1) L 02/15/20 18:31 Albumin 2.1 g/dL (3.4-4.8) L 02/15/20 18:31 Hospitalist H&P A/P - Problem (1) Pancytopenia Code(s): D61.818 - OTHER PANCYTOPENIA Status: Acute (2) Metastatic sarcoma to lung Code(s): C78.00 - SECONDARY MALIGNANT NEOPLASM OF UNSPECIFIED LUNG; C49.9 - MALIGNANT NEOPLASM OF CONNECTIVE AND SOFT TISSUE, UNSP Status: Acute (3) Lactic acidosis Code(s): E87.2 - ACIDOSIS Status: Acute (4) Generalized weakness Code(s): R53.1 - WEAKNESS Status: Acute - Plan Plan: 64y/o male with the stated pmhx who presents with the chief complain of generalise weakness noted to have elevated LA Lactid acidosis - unclear if of infectious etiology, cxr similar to last one, will order u/a and blood cultures - could be related to dehydration. pt does refer anorexia - ivfs - f/u LA - covered prophylactically with cefe + vanc sarcoma with lung mets - oncologist consulted - last chemo 1 week ago pancytopenia - likely related to Ca and chemo - peripheral smear - transfuse if below 7hg - transfuse if less than 10 plts consider hospice care
[2020-02-15] MEDS ORDERED: Vancomycin 1 GM in Premix Bag 1 BAG IVPB SCH (21:00)
[2020-02-15 21:27] LABS: Platelet Count 28 thou/uL (130-400)
[2020-02-15 21:29] LABS: Band 10 % (5-11); Hemoglobin 6.1 g/dL (14.0-18.0); Hypochromia SLIGHT = 6-15 cells (100X) (0-5/hpf); Lymphocytes 8 % (21-51); MDiff Complete? YES; Mean Corpuscular HGB CONC 32.4 g/dL (32.0-36.0); Mean Corpuscular Hemoglobin 26.3 pg (27.0-31.0); Mean Corpuscular Volume 81.3 fL (78.0-98.0); Mean Platelet Volume 13.5 fL (7.4-10.4); Monocytes 13 % (0-10); Neutrophil 69 % (42-75); Nucleated RBC 2 % (0); Platelet Morphology Comment Appears Decreased; RBC Distribution Width 18.3 % (11.5-14.5); Red Blood Cell (RBC) Count 2.32 mill/uL (4.70-6.10); White Blood Cell (WBC) Count 6.3 thou/uL (4.8-10.8)
[2020-02-15 21:47] LABS: Lactic Acid 2.8 mmol/L (0.5-2.2)
[2020-02-15 22:26] LABS: SARS-CoV-2 NAA Rapid Test Not Detected (NotDetected)
[2020-02-15] MEDS: Sodium Chloride 0.9% 1,000 ML IV SCH (23:39)
[2020-02-16 00:10] LABS: Lactic Acid 3.2 mmol/L (0.5-2.2)
[2020-02-16] MEDS: Guaifenesin DM 100-10/5 ML UDCUP PO PRN (00:48)
[2020-02-16 01:37] VITALS: BMI 26.9
[2020-02-16] MEDS: Cefepime 2 GM in Sodium Chloride 0.9% 100 ML IVPB SCH ×2 (04:06→12:37)
[2020-02-16 04:32] LABS: Bacteria/HPF None Seen HPF (None Seen); Bilirubin Negative (Negative); Blood, Urine Trace (Negative); Clarity Turbid (Clear); Glucose, Urine (Dipstick) Normal (Negative); Ketone, Urine Trace mg/dL (Negative); Leukocyte Negative Leu/uL (Negative); Mucous/LPF Rare LPF (<2+); Nitrite Negative (Negative); Protein, Urine (Dipstick) 30 mg/dL (Neg-Trace); RBC/HPF 0-3 HPF (0-3); Specific Gravity, Urine 1.022 (1.002-1.036); Squamous Epithelial 0-3 HPF (0-3); Urobilinogen Normal mg/dL (Less than 2); WBC/HPF 0-3 HPF (0-3); pH, Urine 5.5 (5.0-9.0)
[2020-02-16 04:35] LABS: Urine Culture Reflex No No
[2020-02-16 06:13] LABS: Hemoglobin 5.2 g/dL (14.0-18.0); Mean Corpuscular HGB CONC 30.7 g/dL (32.0-36.0); Mean Corpuscular Volume 81.6 fL (78.0-98.0); Mean Platelet Volume 12.9 fL (7.4-10.4); Platelet Count 26 thou/uL (130-400); RBC Distribution Width 18.5 % (11.5-14.5); Red Blood Cell (RBC) Count 2.09 mill/uL (4.70-6.10); White Blood Cell (WBC) Count 7.3 thou/uL (4.8-10.8)
[2020-02-16 06:17] LABS: Band 34 % (5-11); Hypochromia SLIGHT = 6-15 cells (100X) (0-5/hpf); Lymphocytes 2 % (21-51); MDiff Complete? YES; Metamyelocyte 1 % (0-0); Monocytes 7 % (0-10); Neutrophil 56 % (42-75); Nucleated RBC 6 % (0); Platelet Morphology Comment Appears Decreased
[2020-02-16 06:29] LABS: ALT (SGPT) 9 U/L (8-55); AST (SGOT) 9 U/L (5-34); Alkaline Phosphatase 147 U/L (40-110); Anion Gap 12 mmol/L (10-20); BUN (Urea Nitrogen) 22 mg/dL (8.4-25.7); Bilirubin, Total 1.1 mg/dL (0.2-1.2); Calc. Creatinine Clearance 125 mL/min (70-130); Calcium 7.6 mg/dL (7.8-10.44); Carbon Dioxide 29 mmol/L (23-31); Chloride 94 mmol/L (98-107); Estimated GFR-MDRD Greater than 90; Globulin 2.4 g/dL (2.4-3.5); Glucose 176 mg/dL (80-115); Potassium 3.4 mmol/L (3.5-5.1); Protein, Total 4.4 g/dL (5.8-8.1); Sodium 132 mmol/L (136-145)
[2020-02-16] MEDS ORDERED: Vancomycin 1 GM in Premix Bag 1 BAG IVPB SCH (08:00)
[2020-02-16] MEDS ORDERED: Vancomycin HCl 1.25 GM in Sodium Chloride 0.9% 250 ML 250 ML IVPB SCH (08:00)
[2020-02-16] MEDS ORDERED: Hydrochlorothiazide 25 MG TAB PO SCH (10:30)
[2020-02-16] MEDS ORDERED: Doxazosin 2 MG TAB PO SCH (10:30)
[2020-02-16] MEDS ORDERED: Amiodarone 200 MG TAB PO SCH ×2 (10:30→21:00)
[2020-02-16] MEDS: Nystatin 500,000 UNITS/5 ML UDCUP SSW SCH ×3 (13:44→20:39)
--- NOTE | 2020-02-16 14:59 | PDOC.FMACP ---
Advance Care Planning - Note Summary: Advanced Care Planning was discussed. The diagnosis, prognosis and goals of care were discussed. Appropriate forms and documentation to accomplish the goals of care were discussed. All questions were answered. The Palliative Care Team will be engaged to assist with completion of any outstanding forms that are needed. pt seen and examined. discussed code status with patient. He stated that he does not want to be resuscitated. Pt wanted me to call his and let her know about this. I did call Sherice and left message to call me back. time spent > 25 min.
[2020-02-16 15:02] LABS: Hemoglobin 7.6 g/dL (14.0-18.0); Mean Corpuscular HGB CONC 32.3 g/dL (32.0-36.0); Mean Corpuscular Hemoglobin 26.9 pg (27.0-31.0); Mean Corpuscular Volume 83.3 fL (78.0-98.0); RBC Distribution Width 17.1 % (11.5-14.5); Red Blood Cell (RBC) Count 2.82 mill/uL (4.70-6.10)
[2020-02-16 15:04] LABS: Mean Platelet Volume 12.3 fL (7.4-10.4); Platelet Count 26 thou/uL (130-400)
[2020-02-16 15:21] LABS: Magnesium 1.7 mg/dL (1.6-2.6); Phosphorus 2.8 mg/dL (2.3-4.7)
[2020-02-16 15:43] LABS: Anisocytosis SLIGHT = 6-15 cells (100X) (0-5/hpf); Band 25 % (5-11); Dohle Bodies SLIGHT; Large Platelets SLIGHT; Lymphocytes 5 % (21-51); MDiff Complete? YES; Monocytes 4 % (0-10); Neutrophil 66 % (42-75); Nucleated RBC 1 % (0); Platelet Morphology Comment Appears Decreased; Polychromasia SLIGHT = 2-3 cells (100X) (0-2/hpf); Toxic Granulation SLIGHT
--- NOTE | 2020-02-16 15:56 | CON ---
DATE OF CONSULTATION: REASON FOR CONSULT: Sarcoma. HISTORY OF PRESENT ILLNESS: Mr. Patton is a 64-year-old gentleman with past medical history of sarcoma with metastasis to the lungs. He was initially treated by MD Quezada, but due to transportation issues, switched to Dr. Aragon in the [place]. He was initially treated with radiation and then had chemotherapy. Shortly after the first dose of chemotherapy, he presented to this facility with worsening shortness of breath. He did have an old PleurX catheter in place for pleural effusion. However, it was no longer draining and was removed on that hospitalization. A MediPort was also placed during this past visit. He was discharged home on oxygen and followed up with his medical oncologist who gave him a second dose of chemotherapy and that was this past Sunday. Since that time, he has gotten progressively weaker to the point where he is unable to get out of bed. He complains of extremely poor appetite with cough, mild dysphagia. He does state his shortness of breath has improved some since last visit. On arrival in the emergency room, his white count was 4.4, hemoglobin was 7.4, and platelet count was 23. He states he did receive a shot after chemo, which was likely Neulasta. He was admitted for IV antibiotics and IV fluids. He was transfused 2 units of packed RBCs. He remains weak. PAST MEDICAL HISTORY: 1. 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 2. Hypertension. 3. Atrial fibrillation with RVR. 4. Constipation. 5. Pleural effusion with PleurX catheter placement. PAST SURGICAL HISTORY: 1. MediPort placement. 2. Removal of PleurX cath. 3. Sarcoma resection of right upper back mass. 4. Hip fracture repair. ALLERGIES: NO KNOWN DRUG ALLERGIES. HOME MEDICATIONS: 1. Cardura. 2. Hydrochlorothiazide. 3. Amiodarone. FAMILY HISTORY: Sister had lung cancer. SOCIAL HISTORY: with one child. No alcohol, tobacco, or illicit drug use. REVIEW OF SYSTEMS: 12-point review of systems is negative except for noted in HPI. PHYSICAL EXAMINATION: VITAL SIGNS: Temperature is 98.7, pulse is 98, respiratory rate 18, blood pressure is 126/60, he is 99% on 2 L. GENERAL: Chronically ill-appearing male, in no acute distress. HEENT: Normocephalic, atraumatic. Pupils are equal and reactive to light. NECK: Supple. CV: Regular rate and rhythm. LUNGS: Clear anterior. ABDOMEN: Soft and nontender. Bowel sounds are positive. EXTREMITIES: No clubbing or cyanosis. SKIN: No rash. LYMPH: His right axillary mass has resolved. NEUROLOGIC: Nonfocal. PERTINENT LABS AND X-RAYS: Current WBCs are 7.3, hemoglobin 5.2, hematocrit 17, platelet count 26,000. He has 56% neutrophils, 34% bands, 2% lymphocytes. PT is 15.9, INR is 1.3, and PTT is 37.9. Sodium 132, potassium 3.4, chloride 94, CO2 is 29, BUN is 22, creatinine 0.7, lactic acid 3.2, calcium 7.6, bilirubin is 1.1, AST is 9, ALT is 9, alkaline phosphatase is 147, serum total protein is 4.4, albumin 2.0, globulin 2.4. Urine is negative for bacteria. COVID negative. Chest x-ray showed no acute change from last visit. ASSESSMENT: 1. Pancytopenia, secondary to chemotherapy. 2. Sarcoma with metastases to the lung, lymph nodes, and pleural space. 3. Thrush. DISCUSSION: The patient has been started on IV antibiotics as well as oral nystatin for his thrush. His white count has improved since he has been admitted. He did receive Neulasta after his last chemotherapy. His hemoglobin has dropped, but he has received 2 units of packed RBCs today. Platelets are slowly improving and likely will over the next several days. On last visit here approximately 2 weeks ago, he did have a right axillary and enlarged right axillary lymph node. This has resolved. However, the patient is struggling with chemotherapy as this is his second dose and his second hospitalization. He understands that sarcoma is difficult to treat. I consulted Palliative Care to discuss goals of care. He is a DNR. He may be a candidate for hospice, however, this is not the patient and would recommend discussion with his medical oncologist regarding disease prognosis. Thank you for the consult. We will follow along with his hospital course. Job ID: [id number]
--- NOTE | 2020-02-16 16:43 | PDOC.HOSPP ---
- Subjective Encounter Date: 02/16/20 Encounter Time: 10:30 Subjective: pt up in bed complains of dysphagia. - Objective Vital Signs & Weight: Vital Signs (12 hours) Temp Pulse Pulse Resp BP BP Pulse Ox 02/16/20 15:52 98.6 F 100 18 138/65 95 02/16/20 13:41 98.7 F 99 18 126/60 99 02/16/20 12:00 98.6 F 98 24 H 132/60 95 02/16/20 10:42 98.0 F 95 18 133/62 95 02/16/20 10:18 98.0 F 95 20 132/63 96 02/16/20 10:04 98.0 F 96 20 129/60 96 02/16/20 08:00 94 L 02/16/20 07:58 97.9 F 97 20 126/58 L 94 L Weight Admit Weight 188 lb Weight 188 lb I&O: 02/15/20 02/16/20 02/17/20 06:59 06:59 06:59 Intake Total 1430 700 Output Total 350 Balance 1080 700 Result Diagrams: 02/16/20 14:45 02/16/20 05:48 Hospitalist ROS - Review of Systems Cardiovascular: denies: chest pain, palpitations, orthopnea, paroxysmal noc. dyspnea, edema, light headedness, other Gastrointestinal: denies: nausea, vomiting, abdominal pain, diarrhea, constipation, melena, hematochezia, other Genitourinary: denies: dysuria, frequency, incontinence, hematuria, retention, other - Medication Medications: Active Medications Generic Name Dose Route Start Last Admin Trade Name Freq PRN Reason Stop Dose Admin Guaifenesin/Dextromethorphan 15 ml 02/15/20 20:04 02/16/20 00:48 Robitussin Dm PO 15 ml Q4H PRN Administration Cough Sodium Chloride 1,000 mls @ 100 mls/hr 02/15/20 20:15 02/15/20 23:39 Normal Saline 0.9% IV 1,000 mls .Q10H JATINDER Administration Nystatin 500,000 units 02/16/20 13:00 02/16/20 13:44 Mycostatin SSW 500,000 units QID JATINDER Administration - Exam ENT - other findings: oral thrush Heart: negative: RRR, no murmur, no gallops, no rubs, normal peripheral pulses, irregular, diminshed peripheral pulses, murmur present, II/IV, III/IV Respiratory: negative: CTAB, no wheezes, no rales, no ronchi, normal chest expansion, no tachypnea, normal percussion, rales, rhonchi, tachypneic, wheezes Gastrointestinal: negative: soft, non-tender, non-distended, normal bowel sounds , no palpable masses, no hepatomegaly, no splenomegaly, no bruit, no guarding, no rigidity, tender to palpation, distended, diminished bowl sounds, voluntary guarding Extremities: 2+ LE edema Hosp A/P (1) Anemia Code(s): D64.9 - ANEMIA, UNSPECIFIED Status: Acute (2) Sarcoma Code(s): C49.9 - MALIGNANT NEOPLASM OF CONNECTIVE AND SOFT TISSUE, UNSP Status : Acute (3) Generalized weakness Code(s): R53.1 - WEAKNESS Status: Acute (4) Pancytopenia Code(s): D61.818 - OTHER PANCYTOPENIA Status: Acute - Plan pt s/p 2units of prbc for low hh. Pt got neulasta. spoke to his in details about his overall prognosis. she understands and wants to talk with pt to see if they need to continue with chemo or to stop. I will leave this decision on him and his . He is on gemzar and docetaxel. will stop abx for now pt is unable to tolerate and he has no fever. will monitor his hh and PT.
[2020-02-16] MEDS: Sodium Chloride 0.9% 1,000 ML IV SCH ×2 (17:14)
[2020-02-16] MEDS: Amiodarone 200 MG TAB PO SCH (20:39)
[2020-02-16] MEDS: Hydrochlorothiazide 25 MG TAB PO SCH (20:39)
[2020-02-16] MEDS: Vancomycin HCl 25 MG/ML Oral PO SCH (23:09)
[2020-02-16] MEDS: Cepastat Lozenges 1 LOZ PO PRN (23:09)
[2020-02-17] MEDS: Cepastat Lozenges 1 LOZ PO PRN ×6 (02:00→17:34)
[2020-02-17] MEDS: HYDROcodone/Acetaminophen 5/325 mg Tablet PO PRN ×2 (04:50→19:35)
[2020-02-17] MEDS: Vancomycin HCl 25 MG/ML Oral PO SCH ×3 (05:49→17:33)
[2020-02-17 06:06] LABS: ALT (SGPT) 10 U/L (8-55); AST (SGOT) 10 U/L (5-34); Albumin 2.1 g/dL (3.4-4.8); Alkaline Phosphatase 163 U/L (40-110); Anion Gap 13 mmol/L (10-20); BUN (Urea Nitrogen) 20 mg/dL (8.4-25.7); Bilirubin, Total 1.4 mg/dL (0.2-1.2); Calc. Creatinine Clearance 135 mL/min (70-130); Calcium 7.9 mg/dL (7.8-10.44); Carbon Dioxide 29 mmol/L (23-31); Chloride 94 mmol/L (98-107); Estimated GFR-MDRD Greater than 90; Globulin 2.5 g/dL (2.4-3.5); Glucose 146 mg/dL (80-115); Protein, Total 4.6 g/dL (5.8-8.1); Sodium 133 mmol/L (136-145)
[2020-02-17 06:08] LABS: Band 29 % (5-11); Hemoglobin 7.2 g/dL (14.0-18.0); Lymphocytes 2 % (21-51); MDiff Complete? YES; Mean Corpuscular HGB CONC 31.3 g/dL (32.0-36.0); Mean Corpuscular Hemoglobin 26.2 pg (27.0-31.0); Mean Corpuscular Volume 83.6 fL (78.0-98.0); Monocytes 7 % (0-10); Neutrophil 62 % (42-75); Nucleated RBC 1 % (0); Platelet Count 32 thou/uL (130-400); Platelet Morphology Comment Appears Decreased; RBC Distribution Width 17.4 % (11.5-14.5); Red Blood Cell (RBC) Count 2.76 mill/uL (4.70-6.10); White Blood Cell (WBC) Count 15.2 thou/uL (4.8-10.8)
[2020-02-17 06:11] LABS: Potassium 2.9 mmol/L (3.5-5.1)
[2020-02-17] MEDS: Potassium Chloride 30 MEQ in Sodium Chloride 0.9% 250 ML 250 ML IVPB SCH ×2 (07:29→10:40)
[2020-02-17] MEDS ORDERED: Potassium Chloride 10 MEQ in Premix Bag 1 BAG IVPB SCH (08:30)
[2020-02-17] MEDS ORDERED: Potassium Chloride 20 MEQ TAB PO SCH (08:30)
[2020-02-17] MEDS: Amiodarone 200 MG TAB PO SCH ×3 (08:44→20:58)
[2020-02-17] MEDS: Saccharomyces boulardii 250 MG CAP PO SCH (08:44)
[2020-02-17] MEDS: Hydrochlorothiazide 25 MG TAB PO SCH ×2 (08:45→20:59)
[2020-02-17] MEDS: Nystatin 500,000 UNITS/5 ML UDCUP SSW SCH ×4 (08:45→20:58)
[2020-02-17] MEDS: Doxazosin 2 MG TAB PO SCH (08:48)
--- NOTE | 2020-02-17 17:14 | PDOC.HOSPP ---
- Subjective Encounter Date: 02/17/20 Encounter Time: 11:30 Subjective: pt up in bed no complains - Objective Vital Signs & Weight: Vital Signs (12 hours) Temp Pulse Resp BP Pulse Ox 02/17/20 08:00 97.7 F 95 20 133/61 95 Weight Admit Weight 188 lb Weight 188 lb I&O: 02/16/20 02/17/20 02/18/20 06:59 06:59 06:59 Intake Total 1430 700 Output Total 350 Balance 1080 700 Result Diagrams: 02/17/20 05:02 02/17/20 05:02 Hospitalist ROS - Review of Systems Respiratory: reports: cough. denies: dry, shortness of breath, hemoptysis, SOB with excertion, pleuritic pain, sputum, wheezing, other Cardiovascular: denies: chest pain, palpitations, orthopnea, paroxysmal noc. dyspnea, edema, light headedness, other Gastrointestinal: denies: nausea, vomiting, abdominal pain, diarrhea, constipation, melena, hematochezia, other - Medication Medications: Active Medications Generic Name Dose Route Start Last Admin Trade Name Freq PRN Reason Stop Dose Admin Hydrocodone Bitart/Acetaminophen 1 tab 02/15/20 20:04 02/17/20 04:50 [place] 5/325 PO 1 tab Q4H PRN Administration Moderate Pain (4-6) Amiodarone HCl 400 mg 02/16/20 21:00 02/17/20 14:08 Cordarone PO 400 mg TID JATINDER Administration Doxazosin Mesylate 2 mg 02/17/20 09:00 02/17/20 08:48 Cardura PO 2 mg DAILY JATINDER Administration Guaifenesin/Dextromethorphan 15 ml 02/15/20 20:04 02/16/20 00:48 Robitussin Dm PO 15 ml Q4H PRN Administration Cough Hydrochlorothiazide 25 mg 02/16/20 21:00 02/17/20 08:45 Hydrochlorothiazide PO 25 mg BID JATINDER Administration Nystatin 500,000 units 02/16/20 13:00 02/17/20 12:01 Mycostatin SSW 500,000 units QID JATINDER Administration Saccharomyces Boulardii 250 mg 02/17/20 09:00 02/17/20 08:44 Florastor PO 250 mg DAILY JATINDER Administration Sodium Chloride 10 ml 02/16/20 21:00 02/17/20 08:49 Flush - Normal Saline IVF 10 ml Q12HR JATINDER Administration Throat Lozenges 1 gerda 02/16/20 22:47 02/17/20 14:10 Cepastat Lozenges PO 1 gerda Q2H PRN Administration Sore Throat Vancomycin HCl 125 mg 02/16/20 23:59 02/17/20 11:43 First Vancomycin PO 125 mg Q6HR JATINDER Administration - Exam Neck: negative: supple, symmetric, no JVD, no thyromegaly, no lymphadenopathy, no carotid bruit, JVD Heart: negative: RRR, no murmur, no gallops, no rubs, normal peripheral pulses, irregular, diminshed peripheral pulses, murmur present, II/IV, III/IV Respiratory: negative: CTAB, no wheezes, no rales, no ronchi, normal chest expansion, no tachypnea, normal percussion, rales, rhonchi, tachypneic, wheezes Gastrointestinal: soft, normal bowel sounds Hosp A/P (1) Anemia Code(s): D64.9 - ANEMIA, UNSPECIFIED Status: Acute (2) Sarcoma Code(s): C49.9 - MALIGNANT NEOPLASM OF CONNECTIVE AND SOFT TISSUE, UNSP Status : Acute (3) Generalized weakness Code(s): R53.1 - WEAKNESS Status: Acute (4) Pancytopenia Code(s): D61.818 - OTHER PANCYTOPENIA Status: Acute (5) C. difficile diarrhea Code(s): A04.72 - ENTEROCOLITIS D/T CLOSTRIDIUM DIFFICILE, NOT SPCF RECUR Status: Acute (6) Hypokalemia Code(s): E87.6 - HYPOKALEMIA Status: Acute - Plan pt s/p 2units of prbc for low hh. Pt got neulasta. spoke to his in details about his overall prognosis. she understands and wants to talk with pt to see if they need to continue with chemo or to stop. I will leave this decision on him and his . He is on gemzar and docetaxel. will stop abx for now pt is unable to tolerate and he has no fever. will monitor his hh and PT. 02/16 pt's hh is low stable. He states he feels much better today. will recheck labs in am. pt's is now cdiff positive. pt on vanco. possible home in am if his hh is stable and his diarrhea improves. will replace K
[2020-02-17] MEDS: Guaifenesin DM 100-10/5 ML UDCUP PO PRN ×2 (18:04→22:02)
[2020-02-18] MEDS: Vancomycin HCl 25 MG/ML Oral PO SCH ×5 (00:04→23:50)
[2020-02-18] MEDS: Guaifenesin DM 100-10/5 ML UDCUP PO PRN ×3 (03:22→23:51)
[2020-02-18] MEDS: Cepastat Lozenges 1 LOZ PO PRN ×2 (03:23→23:52)
[2020-02-18 09:19] LABS: Hemoglobin 7.4 g/dL (14.0-18.0); Mean Corpuscular HGB CONC 31.1 g/dL (32.0-36.0); Mean Corpuscular Volume 86.8 fL (78.0-98.0); Mean Platelet Volume 11.8 fL (7.4-10.4); Platelet Count 34 thou/uL (130-400); RBC Distribution Width 17.5 % (11.5-14.5); Red Blood Cell (RBC) Count 2.73 mill/uL (4.70-6.10); White Blood Cell (WBC) Count 17.1 thou/uL (4.8-10.8)
[2020-02-18 09:26] LABS: Anion Gap 13 mmol/L (10-20); BUN (Urea Nitrogen) 18 mg/dL (8.4-25.7); Calc. Creatinine Clearance 144 mL/min (70-130); Calcium 7.9 mg/dL (7.8-10.44); Carbon Dioxide 27 mmol/L (23-31); Chloride 94 mmol/L (98-107); Estimated GFR-MDRD Greater than 90; Glucose 138 mg/dL (80-115); Potassium 3.3 mmol/L (3.5-5.1); Sodium 131 mmol/L (136-145)
[2020-02-18] MEDS ORDERED: Fluconazole In NaCl,Iso-Osm 200 MG in Premix Bag 1 BAG IVPB SCH (09:30)
[2020-02-18] MEDS ORDERED: Potassium Chloride 20 MEQ TAB PO SCH (09:30)
[2020-02-18 09:56] LABS: Band 10 % (5-11); Eosinophils 1 % (0-10); Hypochromia SLIGHT = 6-15 cells (100X) (0-5/hpf); Lymphocytes 4 % (21-51); MDiff Complete? YES; Metamyelocyte 1 % (0-0); Monocytes 8 % (0-10); Neutrophil 76 % (42-75); Platelet Morphology Comment Appears Decreased; Polychromasia SLIGHT = 2-3 cells (100X) (0-2/hpf)
[2020-02-18] MEDS: Amiodarone 200 MG TAB PO SCH ×3 (10:16→20:25)
[2020-02-18] MEDS: Doxazosin 2 MG TAB PO SCH (10:16)
[2020-02-18] MEDS: Nystatin 500,000 UNITS/5 ML UDCUP SSW SCH ×4 (10:17→20:24)
[2020-02-18] MEDS: Saccharomyces boulardii 250 MG CAP PO SCH (10:17)
[2020-02-18] MEDS: Hydrochlorothiazide 25 MG TAB PO SCH (10:26)
--- NOTE | 2020-02-18 16:37 | PDOC.HOSPP ---
- Subjective Encounter Date: 02/18/20 Encounter Time: 09:45 Subjective: pt up in bed complains of cough. - Objective Vital Signs & Weight: Vital Signs (12 hours) Temp Pulse Resp BP Pulse Ox 02/18/20 16:28 98.4 F 99 16 119/58 L 02/18/20 08:00 97.4 F L 90 20 148/67 H 97 Weight Admit Weight 188 lb Weight 188 lb I&O: 02/17/20 02/18/20 02/19/20 06:59 06:59 06:59 Intake Total 700 1437 400 Output Total 950 200 Balance 700 487 200 Result Diagrams: 02/18/20 08:50 02/18/20 08:50 Hospitalist ROS - Review of Systems Respiratory: reports: cough Cardiovascular: denies: chest pain, palpitations, orthopnea, paroxysmal noc. dyspnea, edema, light headedness, other Gastrointestinal: denies: nausea, vomiting, abdominal pain, diarrhea, constipation, melena, hematochezia, other - Medication Medications: Active Medications Generic Name Dose Route Start Last Admin Trade Name Freq PRN Reason Stop Dose Admin Hydrocodone Bitart/Acetaminophen 1 tab 02/15/20 20:04 02/17/20 19:35 [place] 5/325 PO 1 tab Q4H PRN Administration Moderate Pain (4-6) Hydrocodone Bitart/Acetaminophen 2 tab 02/15/20 20:04 02/18/20 00:04 [place] 5/325 PO 2 tab Q4H PRN Administration Severe Pain (7-10) Amiodarone HCl 400 mg 02/16/20 21:00 02/18/20 16:16 Cordarone PO Not Given TID JATINDER Doxazosin Mesylate 2 mg 02/17/20 09:00 02/18/20 10:16 Cardura PO 2 mg DAILY JATINDER Administration Guaifenesin/Dextromethorphan 15 ml 02/15/20 20:04 02/18/20 16:18 Robitussin Dm PO 15 ml Q4H PRN Administration Cough Nystatin 500,000 units 02/16/20 13:00 02/18/20 16:17 Mycostatin SSW 500,000 units QID JATINDER Administration Saccharomyces Boulardii 250 mg 02/17/20 09:00 02/18/20 10:17 Florastor PO 250 mg DAILY JATINDER Administration Sodium Chloride 10 ml 02/16/20 21:00 02/18/20 10:17 Flush - Normal Saline IVF 10 ml Q12HR JATINDER Administration Throat Lozenges 1 gerda 02/16/20 22:47 02/18/20 03:23 Cepastat Lozenges PO 1 gerda Q2H PRN Administration Sore Throat Vancomycin HCl 125 mg 02/16/20 23:59 02/18/20 13:29 First Vancomycin PO 125 mg Q6HR JATINDER Administration - Exam Neck: negative: supple, symmetric, no JVD, no thyromegaly, no lymphadenopathy, no carotid bruit, JVD Heart: negative: RRR, no murmur, no gallops, no rubs, normal peripheral pulses, irregular, diminshed peripheral pulses, murmur present, II/IV, III/IV Respiratory: rhonchi Hosp A/P (1) Anemia Code(s): D64.9 - ANEMIA, UNSPECIFIED Status: Acute (2) Sarcoma Code(s): C49.9 - MALIGNANT NEOPLASM OF CONNECTIVE AND SOFT TISSUE, UNSP Status : Acute (3) Generalized weakness Code(s): R53.1 - WEAKNESS Status: Acute (4) Pancytopenia Code(s): D61.818 - OTHER PANCYTOPENIA Status: Acute (5) C. difficile diarrhea Code(s): A04.72 - ENTEROCOLITIS D/T CLOSTRIDIUM DIFFICILE, NOT SPCF RECUR Status: Acute (6) Hypokalemia Code(s): E87.6 - HYPOKALEMIA Status: Acute - Plan pt s/p 2units of prbc for low hh. Pt got neulasta. spoke to his in details about his overall prognosis. she understands and wants to talk with pt to see if they need to continue with chemo or to stop. I will leave this decision on him and his . He is on gemzar and docetaxel. will stop abx for now pt is unable to tolerate and he has no fever. will monitor his hh and PT. 02/16 pt's hh is low stable. He states he feels much better today. will recheck labs in am. pt's is now cdiff positive. pt on vanco. possible home in am if his hh is stable and his diarrhea improves. will replace K 7/29 pt states he feels well today. HH is low stable. leukocytosis due to nulesta shot. His diarrhea has improved. will continue to vanco.
[2020-02-19] MEDS: Cepastat Lozenges 1 LOZ PO PRN (03:16)
[2020-02-19] MEDS: HYDROcodone/Acetaminophen 5/325 mg Tablet PO PRN (03:21)
[2020-02-19] MEDS: Guaifenesin DM 100-10/5 ML UDCUP PO PRN (04:09)
[2020-02-19 04:43] LABS: Anion Gap 12 mmol/L (10-20); BUN (Urea Nitrogen) 16 mg/dL (8.4-25.7); Calc. Creatinine Clearance 141 mL/min (70-130); Calcium 7.8 mg/dL (7.8-10.44); Carbon Dioxide 30 mmol/L (23-31); Chloride 93 mmol/L (98-107); Estimated GFR-MDRD Greater than 90; Glucose 117 mg/dL (80-115); Potassium 3.7 mmol/L (3.5-5.1); Sodium 131 mmol/L (136-145)
[2020-02-19 05:09] LABS: Hemoglobin 6.7 g/dL (14.0-18.0); Mean Corpuscular Hemoglobin 25.6 pg (27.0-31.0); Mean Corpuscular Volume 85.3 fL (78.0-98.0); Platelet Count 46 thou/uL (130-400); RBC Distribution Width 17.7 % (11.5-14.5); Red Blood Cell (RBC) Count 2.63 mill/uL (4.70-6.10); White Blood Cell (WBC) Count 19.2 thou/uL (4.8-10.8)
[2020-02-19 05:10] LABS: Band 20 % (5-11); Eosinophils 3 % (0-10); Hypochromia SLIGHT = 6-15 cells (100X) (0-5/hpf); Lymphocytes 3 % (21-51); MDiff Complete? YES; Metamyelocyte 1 % (0-0); Monocytes 1 % (0-10); Neutrophil 72 % (42-75); Nucleated RBC 1 % (0); Platelet Morphology Comment Appears Decreased
[2020-02-19] MEDS: Vancomycin HCl 25 MG/ML Oral PO SCH ×2 (05:57→14:35)
--- NOTE | 2020-02-19 07:50 | RAD ---
EXAM: Single view of the chest HISTORY: Shortness of breath COMPARISON: 02/15/2020 FINDINGS: Single view of the chest shows a normal sized cardiomediastinal silhouette. There is a mode rate right pleural effusion with adjacent atelectasis versus infiltrate. The Mediport is unchanged in position. The bones are unremarkable IMPRESSION: Stable right pleural effusion with adjacent atelectasis versus infiltrate
[2020-02-19] MEDS ORDERED: Furosemide 40 MG/4 ML VIAL SLOW IVP SCH (08:30)
[2020-02-19] MEDS ORDERED: Hydrochlorothiazide 25 MG TAB PO SCH (09:00)
[2020-02-19] MEDS: Doxazosin 2 MG TAB PO SCH (09:16)
[2020-02-19] MEDS: Amiodarone 200 MG TAB PO SCH ×2 (09:16→15:04)
[2020-02-19] MEDS: Saccharomyces boulardii 250 MG CAP PO SCH (09:16)
[2020-02-19] MEDS: Nystatin 500,000 UNITS/5 ML UDCUP SSW SCH ×2 (09:16→14:36)
[2020-02-19 11:42] VITALS: TEMP 98.4
[2020-02-19 15:03] VITALS: BP 144/62
--- NOTE | 2020-02-20 03:44 | DIS ---
DATE OF ADMISSION: 02/15/2020 DATE OF DISCHARGE: 02/19/2020 DISCHARGE DIAGNOSES: 1. Generalized weakness. 2. Shortness of breath. 3. Acute anemia, most likely secondary to recent chemotherapy. 4. Sarcoma. 5. Generalized weakness. 6. Pancytopenia. 7. Clostridium difficile diarrhea, new diagnosis. 8. Hypokalemia. HOSPITAL COURSE: The patient is a 64-year-old male with a history of sarcoma, who presents to the hospital with generalized weakness. He was found to have an H and H of 5.2. In total, he was transfused 3 units of PRBCs. His H and H on the day of discharge were 6.7. I did give him an additional unit so that equaled 3 units in total. The patient had received a Neulasta shot about 7 days ago. His white count was 19,000. The patient has been afebrile. His platelets improved from 26 to 46. The patient had diarrhea, at this time, C. diff was checked. He was toxin positive and antigen positive. He was started on oral vancomycin. His diarrhea improved. The patient was able to eat and drink much more than he did at home. The patient had significant oral thrush, which I had given him nystatin, which improved significantly. He has no difficulty swallowing now. The patient has generalized weakness and shortness of breath. He is on home oxygen. The reason being his right side is significant of sarcoma. I had an extensive conversation with the patient and the patient's about his overall poor prognosis. The patient's is supposed to have a conversation with the patient and then, decide if to continue therapy or not. I will be discharging the patient home. He will follow up with his primary and his oncologist. MEDICATIONS: His home medications are as of the following; 1. Lasix 40 mg as needed. 2. Nystatin 100,000 units q.i.d. swish and swallow. 3. Potassium 20 mEq daily. 4. Florastor 250 mg daily. 5. Vancomycin 125 every 6 hours for a total of 14 days. 6. Cardura 2 mg daily. 7. Hydrochlorothiazide 25 mg daily. 8. Amiodarone 400 mg t.i.d. PHYSICAL EXAMINATION: VITAL SIGNS: On discharge; temperature 98.4, respirations 20, O2 saturations 94 on 3 L, blood pressure 91/44, and heart rate 62. GENERAL: He is awake, alert, and oriented x3, appears in mild distress. CV: S1 and S2 present. No murmurs, rubs, or gallops. ABDOMEN: Soft and nontender. Bowel sounds are present x2. LUNGS: Decreased breath sounds to right lung. Again, he will be discharged home. I did speak with the after patient was discharged to update her. Job ID: [id number]
--- NOTE | 2020-02-20 08:05 | PQF ---
Dear : Loreta Muir Date: 02/20/20 Please exercise your independent, professional judgment in responding to the clarification form. Clinical indicators are provided on the bottom of this form for your review Can you please further clarify the nutritional status of the patient? Please check appropriate box(es): [ x ] Protein Calorie Malnutrition: [ ] Mild [x ] Moderate [ ] Severe [ ] Other Malnutrition (please specify) __ [ ] Underweight without malnutrition [ ] Cachexia [ ] Other diagnosis [ ] Unable to determine In addition, please specify: Present on Admission (POA): [ x] Yes [ ] No [ ] Unable to determine Physician Signature: Date/Time: For continuity of documentation, please document condition throughout progress notes and discharge summary. Thank You. To be completed by CDI/Coding staff for physician review: Present Clinical Indicators - Signs / Symptoms / Labs Results and Location in Medical Record [ x ] Patient report limited PO intake with unclear time frame Nutritional assessment 02/15 [ x ] Reported 20.9% weight loss in 6 months Nutritional assessment 02/15 [ x ] 2+ pitting edema present suggestive of severe malnutrition ib the context of chronic illness Nutritional assessment 02/15 [ x ] Unsure weight loss, poor appetite Nutritional assessment 02/15 [ x ] BMI 27.0 Nutritional assessment 02/15 [ x ] Patient diets refer anorexia H and P pg.3 [ x ] Extremely poor appetite with cough and mild dysphagia Consult pg.1 [ x ] Albumin: 02/14=2.1 02/15=2.0 02/16=2.1 Labs 02/14 [ x ] Total Protein: 02/14=4.7 02/15=4.4 02/16=4.6 Labs 02/14 Present Risk Factors Results and Location in Medical Record [ x ] Sarcoma H and P pg.1 [ x ] Metastatic lung cancer H and P pg.1 [ x ] Pancytopenia related to cancer and chemo H and P pg.3 [ x ] HTN Consult pg.1 [ x ] AFIB Consult pg.1 [ x ] Constipation Consult pg.1 [ x ] 64 years old male H and P pg.1 Present Treatments Results and Location in Medical Record [ x ] Dietary consult Nutritional assessment 02/15 [ x ] Nutritional supplements Nutritional assessment 02/15 [ x ] Oncology Consult Consult 02/15 [ x ] IV Fluids MAR [ x ] Pack RBC Blood bank [ x ] Continue Ensure Enlive TID Nutritional assessment 02/15 [ x ] Monitor weight change Nutritional assessment 02/15 [ x ] Monitor total protein intake Nutritional assessment 02/15 CDS/Test Lead Application Testing Signature: Anton Bartholomew Phone #: ext [phone] Date: 02/20/20 Moderate Malnutrition (in acute illness) ? Energy Intake: <75% of estimated energy requirement for > 7 days ? Weight Loss: 1-2%/1 week; 5%/ 1 month; 7.5%/3 months ? Other: mild body fat loss; mild muscle mass loss; mild fluid accumulation; Severe Malnutrition (in acute illness) ? Energy Intake: ? 50% of estimated energy requirement for ? 5 days ? Weight Loss: >2%/1 week; >5%/1 month; >7.5%/3 months ? Other: moderate body fat loss; moderate muscle mass loss; moderate- severe fluid accumulation; measurably reduced car dispatcher strength Moderate Malnutrition (in chronic illness) ? Energy Intake: <75% of estimated energy requirement for ?1 month ? Weight Loss: 5%/1 month; 7.5%/3 months; 10%/6 months; 20%/1 year ? Other: mild body fat loss; mild muscle mass loss; mild fluid accumulation Severe Malnutrition (in chronic illness) ? Energy Intake: ?75% of estimated energy requirement for ?1 month ? Weight Loss: >5%/1 month; >7.5%/3 months; >10%/6 months; >20%/1 year ? Other: severe body fat loss; severe muscle mass loss; severe fluid accumulation; measurably reduced car dispatcher strength This is a permanent part of the Medical Record MTDD
== END 2020-02-19 16:42 | disposition home health service (06) | DRG 809 ==
LOC: ERS 17:46 → ONC 20:17
PROVIDERS: ADMIT Internal Medicine; ATTEND Internal Medicine
PROC: 30233N1 Transfusion of Nonautologous Red Blood Cells into Peripheral Vein, Percutaneous Approach (ICD-10-PCS; principal; 2020-02-16)
DX: D61.810 Antineoplastic chemotherapy induced pancytopenia (principal); C49.9 Malignant neoplasm of connective and soft tissue, unspecified; C78.02 Secondary malignant neoplasm of left lung; C78.01 Secondary malignant neoplasm of right lung; E87.2 Acidosis; C77.9 Secondary and unspecified malignant neoplasm of lymph node, unspecified; C78.2 Secondary malignant neoplasm of pleura; A04.72 Enterocolitis due to Clostridium difficile, not specified as recurrent; E44.0 Moderate protein-calorie malnutrition; Z66 Do not resuscitate; Z51.5 Encounter for palliative care; E87.6 Hypokalemia; T45.1X5A Adverse effect of antineoplastic and immunosuppressive drugs, initial encounter; I10 Essential (primary) hypertension; I48.91 Unspecified atrial fibrillation; K59.00 Constipation, unspecified; B37.9 Candidiasis, unspecified; Z79.899 Other long term (current) drug therapy; Z85.831 Personal history of malignant neoplasm of soft tissue; Z68.27 Body mass index [BMI] 27.0-27.9, adult
CPT/HCPCS: 36415; 36430; 71045; 80048; 80053; 81001; 83605; 83735; 83880; 84100; 84145; 84443; 84484; 85007; 85025; 85027; 85060; 85610; 85730; 86850; 86900; 86901; 87040; 87324; 87449; 87493; 93005; 96365; 96366; J0692; J1642; J1940; J3370; J3480; J3490; J7050; P9016; U0002